=== PATIENT | female | born 1970 | race Caucasian/White ===

== ENCOUNTER 2023-01-03 19:47 | Outpatient (REF) | payer OTHER, SELFPAY ==
[2023-01-06 11:09] LABS: Age Gdln ACOG Testing Note (.); HPV Aptima Negative (Negative); IGP, Aptima HPV, rfx 16/18,45 Note (.)
== END 2023-01-03 19:48 ==
LOC: LAB 19:47
PROVIDERS: PCP Physician Assistant; Visit Provider Physician Assistant
DX: R87.615 Unsatisfactory cytologic smear of cervix (principal)
CPT/HCPCS: 87624; G0145

== ENCOUNTER 2023-11-29 15:48 | Outpatient (OUT) | payer OTHER, SELFPAY | END 2023-11-29 15:49 | disposition home or self-care (01) | LOC: SLEEP 15:48 | PROVIDERS: PCP Family Medicine; Visit Provider Family Medicine | DX: G47.33 Obstructive sleep apnea (adult) (pediatric) (principal) | CPT/HCPCS: 95806 ==

== ENCOUNTER 2024-02-29 16:08 | Outpatient (RCR) | payer OTHER, SELFPAY | END 2024-03-21 11:48 | disposition home or self-care (01) | LOC: PT 16:08 | PROVIDERS: PCP Family Medicine | DX: M53.3 Sacrococcygeal disorders, not elsewhere classified (principal) | CPT/HCPCS: 97110; 97112; 97113; 97162 ==

== ENCOUNTER 2024-03-18 13:45 | Outpatient (OUT) | payer OTHER, SELFPAY ==
--- NOTE | 2024-03-18 15:04 | P.CN_ITS ---
Consult Note: HPI Data of Consult Patient: new to practice Consult date: 03/18/24 Requesting Physician: Doris Green MD Primary Care Provider: Denise Baker MD Consult Narrative Reason for consult: low back, buttock pain Narrative: 53yof who presents for evaluation. several months of worsening low back and buttock pain, occasionally notes shooting pain into bilateral lower extremities. has had two lumbar surgeries in the past, fused from l2-5. imaging reviewed, which shows multilevel degnerative changes. currently engaged in physical therapy and has engaged in >6 weeks of provider directed home exercises, without lasting benefit. uses ibuprofen, with some decreasing benefit. denies adverse med side effects. cc:: CC: Doris Green MD Review of Systems ROS Status of ROS 10 or more systems reviewed and unremark able except as noted in history and below Exam Narrative Exam Narrative: Psych-alert and oriented x 3. Attentive and appropriate, constitutionally normal, displays normal mood and affect per situation.? There are no obvious deficits in memory, reasoning, or intellect.? Skin-no obvious rashes, bruising, erythema noted to the patient's area of pain. Extremities- extremities are warm with minimal edema and palpable pulses. Lumbar-no significant tenderness to palpation noted in the lumbar spine and paraspinal musculature.? Pain is elicited with extension, and lateral rotation of the lumbar spine. Range of motion is slightly diminished with these motions due to pain. Facet loading maneuvers are positive bilaterally and do appear to be concordant with the patient's normal complaints of pain.? Sacroiliac - tenderness to palpation over bilateral PSIS. Positive Ganga's bilaterally. Positive thigh thrust bilaterally. Coordination remains intact.? Gait remains non-antalgic. Assessment and Plan Assessment and Plan (1) Sacroiliac joint pain: (2) Lumbar postlaminectomy syndrome: Plan 53yof who presents for evaluation. failed conservative measures, as noted. imaging reviewed, as noted. given symptoms and imaging findings, prudent to attempt bilateral sacroiliac joint injections under fluoroscopic for diagnostic and potentially therapeutic purposes. she is in agreement. meds reviewed. will trial celebrex 200mg bid prn. follow up after procedure.
== END 2024-03-18 13:46 | disposition home or self-care (01) ==
LOC: PM 13:45
PROVIDERS: PCP Family Medicine; Visit Provider Anesthesiology
DX: M53.3 Sacrococcygeal disorders, not elsewhere classified (principal); M96.1 Postlaminectomy syndrome, not elsewhere classified
CPT/HCPCS: G0463

== ENCOUNTER 2024-04-08 06:39 | Day surgery (SDC) | payer OTHER, SELFPAY ==
--- OUTSIDE RECORDS SUMMARY | 2024-04-08 06:43 | XMS_ITS | CCD ---
Author Organization [facility] Care Team Providers Care Organ Assembler Name Role Phone John Hutton Unavailable Luke Johnson Unavailable Stan Cunningham Unavailable MD Denise Hutton Primary Care Provider [phone] OSMIN YatesC Breann Barfield Attending Provider Denise Hutton Primary Care Unavailable Stan Cunningham Admitting Unavailable Stan Cunningham Attending Unavailable Denise Hutton Primary Care Unavailable Breann Yates Admitting Unavailable Breann Yates Attending Unavailable Denise Hutton Primary Care Unavailable Stan Cunningham Admitting Unavailable Stan Cunningham Attending Unavailable Denise Hutton Unavailable NICOLE ., KIKO Admitting Unavailable FAWWAD, WESLEY H Primary Care Unavailable NICOLE ., KIKO Attending Unavailable NICOLE ., KIKO Consulting Unavailable REQUEST, NONE LISTED Attending Unavaila ble REQUEST, DR JACKSON LISTED Consulting Unavaila ble REQUEST, NONE LISTED Admitting Unavaila ble FAWWAD, WESLEY H Primary Care Unavailable ANNI, DR DENISE Metzger Admitting Unavailable FAWWAD, WESLEY H Primary Care Unavailable HUTTON, DR DENISE Metzger Attending Unavailable FAWWAD, WESLEY H Primary Care Unavailable ANNI, DR DENISE Metzger Attending Unavailable ANNI, DR DENISE Metzger Consulting Unavailable ANNI, DR DENISE Metzger Admitting Unavailable ALO ., DR ESTRADA Attending Unavailable ALO ., DR ESTRADA Consulting Unavailable FAWWAD, WESLEY H Primary Care Unavailable ALO ., DR ESTRADA Admitting Unavailable MD Denise Hutton Primary Care Provider [phone] MD Denise Hutton Attending Provider [phone] Peter THORNTON, Doris Nelson Attending Unavailable KONSTANTIN GAYTAN Attending Unavailable Allergies Allergy Classification Reported Allergen(s) Allergy Type Date of Onset Reaction(s) Facility (12 sources) Sulfamethoxazole / Trimethoprim Drug Allergy Unknown [facility] [employer] Other (5 sources) Sulfamethoxazole; Translations: [sulfamethoxazole] Drug Allergy 08-22-19 [facility] (5 sources) Trimethoprim; Translations: [trimethoprim] Drug Allergy 08-22-19 [facility] (3 sources) Glucophage *ANTIDIABETICS* Allergy to substance 11-02-19 [facility] Medications Current Medications Medication Drug Class(es) Dates Sig (Normalized) Sig (Original) 0.67 ML dupilumab 150 MG/ML Prefilled Syringe [Dupixent] (7 sources) Dupixent 100 MG/0.67ML as directed Subcutaneous Active Accu-Chek Rossi Plus - (2 sources) Start: 01-18-2023 Accu-Chek Rossi Plus - as directed In Vitro daily for 90 days Dec, Active amoxicillin 875 mg / clavulanate 125 mg oral tablet (3 sources) Penicillin-class Antibacterial Start: 12-20-2022 take 1 tablet by mouth every twelve hours Amoxicillin-Pot Clavulanate 875-125 MG 1 tablet Orally every 12 hrs for 10 day(s) November, Active benzonatate 200 mg oral capsule (3 sources) Non-narcotic Antitussive Start: 12-20-2022 take 1 capsule by mouth every eight hours Benzonatate 200 MG 1 capsule Orally Three times a day for 10 day(s) November, Active cetirizine hydrochloride 10 mg oral tablet (11 sources) Histamine-1 Receptor Antagonist Start: 08-22-2019 take 1 tablet by mouth once daily at bedtime Cetirizine (Zyrtec) 10 mg Tablet Active 10 MG PO Daily at bedtime August 22, 2019 1:00am dapagliflozin 5 mg oral tablet (4 sources) Sodium-Glucose Cotransporter 2 Inhibitor Start: 09-19-2022 take 1 tablet by mouth every twenty-four hours Farxiga 5 MG 1 tablet Orally Once a day for 28 days sample 20 Feb, 2023 Active doxycycline hyclate 100 mg oral capsule (7 sources) Tetracycline-class Drug take 1 capsule by mouth twice daily Doxycycline Hyclate 100 MG TAKE 1 CAPSULE BY MOUTH TWICE A DAY for 7 Active empagliflozin 25 mg oral tablet (6 sources) Sodium-Glucose Cotransporter 2 Inhibitor Start: 11-03-2023 take 1 tablet by mouth once daily Empagliflozin (Jardiance) 25 mg tablet Active 25 MG PO Daily November 03, 2023 12:00am take 1 tablet by vargas th every twenty-four hours Jardiance 25 MG 1 tablet Orally Once a day for 90 days Active take 1 tablet by vargas th every twenty-four hours Jardiance 10 MG 1 tablet Orally Once a day Active estradiol 1 mg oral tablet (20 sources) Estrogen Start: 10-18-2023 End: 01-16-2024 Estradiol Active 0 .ROUTE .COMPLEX January 16, 2024 8:35am TAKE 1 TABLET DAILY Start: 08-22-2019 End: 10-18-2023 take 1 mg by mouth once daily Estradiol Discontinued 1 MG PO Daily August 22, 2019 1:00am October 18, 2023 8:31am fluticasone propionate 0.05 mg/actuat metered dose nasal spray (11 sources) Corticosteroid Start: 08-22-2019 Fluticasone Pr opionate Active 2 SPRAY INTRANASAL Daily August 22, 2019 1:00am take 2 spray(s) nasal route once daily Fluticasone Propionate 50 MCG/ACT USE 2 SPRAYS IN EACH NOSTRIL DAILY for 90 Active FreeStyle Flaca 2 [place] - (7 sources) Start: 09-19-2022 FreeStyle Flaca 2 [place] - as directed for 30 days Aug, Active FreeStyle Flaca 2 Sensor - (7 sources) Start: 09-19-2022 FreeStyle Flaca 2 Sensor - as directed for 30 days Aug, Active glipiZIDE 10 mg oral tablet (13 sources) Sulfonylurea Start: 08-22-2019 take 10 mg by mouth twice daily Glipizide Active 10 MG PO Twice daily August 22, 2019 1:00am hydroCHLOROthiazide 12.5 mg / lisinopril 20 mg oral tablet (17 sources) Thiazide Diuretic, Angiotensin Converting Enzyme Inhibitor Start: 02-05-2024 Lisinopril-Hydr ochlorothiazide Active 0 .ROUTE .COMPLEX February 05, 2024 10:23am TAKE 1 TABLET DAILY Start: 08-22-2019 End: 02-05-2024 take 1 tablet by mouth once daily Lisinopril-Hydrochlorothiazide Discontin ued 1 TAB PO Daily August 22, 2019 1:00am February 05, 2024 10:23am ibuprofen 800 mg oral tablet (17 sources) Nonsteroidal Anti-inflammatory Drug Start: 10-04-2023 Ibuprofen (Ibu) 8 00 mg tablet Active 0 .ROUTE .COMPLEX 270 October 04, 2023 3:08pm TAKE 1 TABLET 3 TIMES DAILYAS NEEDED Start: 10-04-2023 End: 10-04-2023 take 800 mg by mouth three times daily Ibuprofen Discontinued 800 MG PO Three times daily October 04, 2023 1:00am October 04, 2023 3:08pm Start: 08-22-2019 End: 09-04-2019 take 800 mg by mouth three times daily Ibuprofen Discontinued 800 MG PO Three times daily August 22, 2019 1:00am September 04, 2019 2:11pm take 1 tablet by vargas th every eight hours at mealtime as needed Ibuprofen 800 MG 1 tablet with food or milk as needed Orally every 8 hrs Active lisinopril 20 mg oral tablet (1 source) Angiotensin Converting Enzyme Inhibitor take 1 tablet by mouth once daily Lisinopril 20 MG TAKE 1 TABLET BY MOUTH EVERY DAY Oral for 90 Active metFORMIN hydrochloride 1000 mg oral tablet (19 sources) Biguanide Start: Metformin Active 0 .ROUTE .COMPLEX 90 November 08, 2023 9:58am TAKE 1 TABLET ONCE DAILY WITH A MEAL Start: 11-03-2023 End: 11-08-2023 take 1 tablet by mouth once daily Metformin Discontinued 1 TAB PO Daily November 03, 2023 12:00am November 08, 2023 9:59am FreeTextSi tablet with a meal Orally Once a day; Note: Source Status: Taking; Refills: 3; Qty: 90 Tablet; Provider: Anni Metzger Start: 11-22-2022 take 1 tablet by vargas th every twenty-four hours metFORMIN HCl 1000 MG 1 tablet with a meal Orally Once a day for 90 days Oct, Active Start: 08-22-2019 End: 02-01-2022 take 500 mg by mouth twice daily Metformin Discontinued 500 MG PO Twice daily August 22, 2019 1:00am February 01, 2022 6:04am take 1 tablet by vargas th every twenty-four hours metFORMIN HCl 500 MG 1 tablet with a meal Orally Once a day Active mometasone furoate 0.05 mg/actuat metered dose nasal spray (3 sources) Corticosteroid take 2 spray(s) nasal route once daily Nasonex 50 MCG/ACT 2 sprays in each nostril Nasally Once a day Active montelukast 10 mg oral tablet (16 sources) Leukotriene Receptor Antagonist Start: 08-22-19 take 10 mg by mouth once daily in the morning Montelukast Active 10 MG PO Every morning August 22, 2019 1:00am Nasonex 50 MCG/ACT (2 sources) take 2 spray(s) nasal route once daily Nasonex 50 MCG/ACT 2 sprays in each nostril Nasally Once a day Active pantoprazole 40 mg delayed release oral tablet (14 sources) Proton Pump Inhibitor Start: 11-08-19 Pantoprazole Active 0 .ROUTE .COMPLEX 90 November 08, 2023 9:58am TAKE 1 TABLET ONCE DAILY Start: 02-01-2022 End: 11-08-2023 take 40 mg by mouth once daily Pantoprazole Discontinu ed 40 MG PO Daily February 01, 2022 12:00am November 08, 2023 9:59am Completed/Discontinued Medications Medication Drug Class(es) Dates Sig (Normalized) Sig (Original) cephalexin 500 mg oral capsule (4 sources) Cephalosporin Antibacterial Start: 09-04-19 End: 02-02-20 take 1 capsule by mouth every eight hours Cephalexin (Keflex) 500 mg capsule Discontinued 500 MG PO Q8H 15 September 04, 2019 1:00am February 01, 2022 6:04am cyclobenzaprine hydrochloride 10 mg oral tablet (4 sources) Muscle Relaxant Start: 09-04-19 End: 02-02-20 take 10 mg by mouth three times daily Cyclobenzaprine Discontinued 10 MG PO Three times daily 50 September 04, 2019 1:00am February 01, 2022 6:04am dicyclomine hydrochloride 20 mg oral tablet (5 sources) Anticholinergic Start: 08-22-19 End: 02-02-20 take 20 mg by mouth twice daily Dicyclomine Discontinued 20 MG PO Twice daily August 22, 2019 1:00am February 01, 2022 6:04am methylPREDNISolone 4 mg oral tablet (4 sources) Corticosteroid methylPREDNISolo ne 4 MG TAKE 6 TABLETS ON DAY 1 DIRECTED ON PACKAGE AND DECREASE BY 1 TAB EACH DAY FOR A TOTAL OF 6 DAYS for 6 Not-Taking oxyCODONE hydrochloride 5 mg oral capsule (4 sources) Opioid Agonist Start: 09-04-19 End: 02-02-20 take 5-10 mg by mouth every six hours Oxycodone Discontinued 5 - 10 MG PO Q6H 60 8 September 04, 2019 February 01, 2022 6:04am Prednisone (4 sources) Start: 09-04-19 End: 02-02-20 Prednisone Discontinued 1 dose pk PO per package directions September 04, 2019 1:00am February 01, 2022 6:04am take 4 tabs for 3 days then take 3 tabs for 3 days then take 2 tabs for 3 days then take 1 tab for 3 days Start: 09-04-2019 End: 02-01-2022 Prednisone Discontinued 1 do se pk PO per package directions September 04, 2019 12:00am February 01, 2022 5:04am take 4 tabs for 3 days then take 3 tabs for 3 days then take 2 tabs for 3 days then take 1 tab for 3 days sucralfate 1000 mg oral tablet (9 sources) Aluminum Complex Start: 02-01-2022 End: 11-03-2023 take 1 g by mouth three times daily Sucralfate Discontinued 1 GM PO Three times daily February 01, 2022 12:00am November 03, 2023 2:42pm Start: 01-24-2022 take 1 tablet by vargas th every eight hours Sucralfate 1 GM 1 tablet on an empty stomach Orally THREE TIMES A DAY for 30 day(s) Dec, Not-Taking Start: 01-24-2022 take 1 tablet by vargas th three times daily Sucralfate 1 GM 1 tablet on an empty stomach Orally THREE TIMES A DAY for 30 day(s) Dec, Not-Taking tiZANidine (8 sources) Central alpha-2 Adrenergic Agonist tiZANidine HCl Not-Taking tiZANidine HCl A ctive Problems Active Problems Problem Classification Problem Date Documented Da te Episodic/Chronic Allergic reactions (7 sources) Atopic dermatitis; Translations: [Intrinsic (allergic) eczema] Chronic Allergic reactions (3 sources) Dermatitis, unspecified; Translations: [Dermatitis, unspecified] Onset: 09-06-2022 Episodic Diabetes mellitus with complications (20 sources) Type 2 diabetes mellitus; Translations: [Type 2 diabetes mellitus with unspecified complications] Onset: 01-24-2022 Resolved: 01-24-2022 Chronic Diabetes mellitus without complication (1 source) Type 2 diabetes mellitus without complications; Translations: [Diabetes mellitus without mention of complication, type II or unspecified type, not stated as uncontrolled] 11-03-2023 Chronic Esophageal disorders (20 sources) Gastro-esophageal reflux disease with esophagitis; Translations: [Gastro-esophageal reflux disease with esophagitis] Onset: 01-24-2022 Resolved: 01-24-2022 Chronic Hepatitis (12 sources) Nonalcoholic steatohepatitis; Translations: [Nonalcoholic steatohepatitis (STEWART)] Chronic Immunizations and screening for infectious disease (17 sources) Raised antinuclear antibody; Translations: [Other specified abnormal immunological findings in serum] Onset: 09-19-2022 Episodic Noninfectious gastroenteritis (8 sources) Gastroenteritis; Translations: [Noninfective gastroenteritis and colitis, unspecified] Episodic Other acquired deformities (12 sources) Spondylolisthesis; Translations: [Spondylolisthesis, lumbar region] Episodic Other female genital disorders (1 source) Other specified noninflammatory disorders of vagina; Translations: [OTH SPEC NONINFLAMMATORY D/O VAGINA] Onset: 09-22-2022 Episodic Other gastrointestinal disorders (8 sources) Irritable bowel syndrome with diarrhea; Translations: [Irritable bowel syndrome with diarrhea] Chronic Other gastrointestinal disorders (1 source) Irritable bowel syndrome with diarrhea Onset: 01-24-2022 Resolved: 01-24-2022 Chronic Other gastrointestinal disorders (12 sources) Diarrhea; Translations: [Diarrhea, unspecified] Episodic Other gastrointestinal disorders (20 sources) Dysphagia; Translations: [Dysphagia, unspecified] 02-01-2022 Episodic Other liver diseases (12 sources) Elevated liver enzymes level; Translations: [Abnormal levels of other serum enzymes] Episodic Other nervous system disorders (11 sources) Chronic pain; Translations: [Other chronic pain] Chronic Other nervous system disorders (1 source) Other chronic pain; Translations: [Other chronic pain G89.29] Onset: 05-27-2021 Resolved: 05-27-2021 Chronic Other non-traumatic joint disorders (11 sources) Hip pain; Translations: [Pain in unspecified hip] Episodic Other nutritional; endocrine; and metabolic disorders (20 sources) Body mass index 40+ - severely obese; Translations: [Body mass index (BMI) 40.0-44.9, adult] Chronic Other screening for suspected conditions (not mental disorders or infectious disease) (4 sources) Encounter for screening for malignant neoplasm of cervix; Translations: [ENC SCREENING MALIG NEOPLASM CERV] Onset: 11-28-2022 Episodic Other upper respiratory infections (1 source) Acute maxillary sinusitis, unspecified Episodic Residual codes; unclassified (3 sources) Obstructive sleep apnea syndrome; Translations: [Obstructive sleep apnea (adult) (pediatric)] 11-03-2023 Chronic Residual codes; unclassified (3 sources) Sleep apnea; Translations: [Sleep apnea, unspecified] 11-03-2023 Chronic Residual codes; unclassified (1 source) Obstructive sleep apnea (adult) (pediatric); Translations: [Obstructive sleep apnea (adult)(pediatric)] 11-03-2023 Chronic Residual codes; unclassified (1 source) Sleep apnea, unspecified; Translations: [Obstructive sleep apnea (adult)(pediatric)] 11-03-2023 Chronic Spondylosis; intervertebral disc disorders; other back problems (13 sources) Inflammation of sacroiliac joint; Translations: [Sacroiliitis, not elsewhere classified] Onset: 05-13-2021 Resolved: 05-13-2021 Chronic Spondylosis; intervertebral disc disorders; other back problems (20 sources) Spinal stenosis of lumbar region; Translations: [Spinal stenosis, lumbar region with neurogenic claudication] Onset: 05-13-2021 Resolved: 05-13-2021 Episodic Unclassified (1 source) R13.10 - Dysphagia, unspecified; Translations: [R13.10 - Dysphagia, unspecified] Onset: 02-01-2022 Unclassified (1 source) Z01.812 - Encounter for preprocedural laboratory examination; Translations: [Z01.812 - Encounter for preprocedural laboratory examination] Onset: 01-27-2022 Past or Other Problems Problem Classification Problem Date Documented Da te Episodic/Chronic Malaise and fatigue (4 sources) Other fatigue; Translations: [OTHER FATIGUE] Onset: 03-22-2022 Episodic Other connective tissue disease (1 source) Trochanteric bursitis, left hip; Translations: [Trochanteric bursitis of left hip M70.62] Onset: 05-13-2021 Resolved: 05-13-2021 Episodic Other gastrointestinal disorders (1 source) Dysphagia, unspecified Onset: 01-24-2022 Resolved: 01-24-2022 Episodic Other gastrointestinal disorders (1 source) Other specified symptoms and signs involving the digestive system and abdomen Onset: 01-24-2022 Resolved: 01-24-2022 Episodic Other non-traumatic joint disorders (1 source) Pain in unspecified hip; Translations: [Hip pain M25.559] Onset: 05-27-2021 Resolved: 05-27-2021 Episodic Unclassified (1 source) Low back pain, unspecified M54.50; Translations: [Low back pain, unspecified M54.50] Onset: 05-27-2021 Resolved: 05-27-2021 Results Test Name Value Interpretation Reference Range Facility PAP ACOG PANEL 2: 30 to 65on 12-05-2022 . . Normal [facility] Comment on above: Result Comment: Perf ormed at: WB Performed By: #### [id number] #### [facility] [address] [address] [address] Axel Zamora Age Gdln ACOG Testing 30-65 Normal [facility] Comment on above: Performed By: #### [id number] #### [facility] [address] [address] [address] Axel Zamora DIAGNOSIS: Comment Normal [facility] Comment on above: Result Comment: UNSA TISFACTORY FOR EVALUATION. Performed at: WB Performed By: #### [id number] #### [facility] [address] [address] [address] Axel Zamora HPV Aptima Negative Normal Negative [facility] Comment on above: Result Comment: This nucleic acid amplification test detects fourteen high-risk HPV types (16,18,31,33,35,39,45,51,52,56,58,59,66,68) without differentiation. Performed at: =G Performed By: #### [id number] #### [facility] [address] [address] [address] Axel Zamora HPV Genotype Reflex Comment Normal [facility] Comment on above: Result Comment: Crit eria not met, HPV Genotype not performed. Performed at: WB Performed By: #### [id number] #### [facility] [address] [address] [address] Axel Zamora Methodology: Comment Normal [facility] Comment on above: Result Comment: This liquid based ThinPrep(R) pap test was screened with the use of an image guided system. Performed at: WB Performed By: #### [id number] #### [facility] [address] [address] [address] Axel Zamora Note: Comment Normal [facility] Comment on above: Result Comment: The Pap smear is a screening test designed to aid in the detection of premalignant and malignant conditions of the uterine cervix. It is not a diagnostic procedure and should not be used as the sole means of detecting cervical cancer. Both false-positive and false-negative reports do occur. . Performed at: WB Performed By: #### [id number] #### [facility] [address] [address] [address] Axel Zamora Performed by: Comment Normal [facility] Comment on above: Result Comment: Margaret Bryant, Retail Brand Ambassador (ASCP) Performed at: WB Performed By: #### [id number] #### [facility] [address] [place] [address] Dr. Axel Zamora QC reviewed by: Comment Normal [facility] Comment on above: Result Comment: Teri Barahona, Supervisory Retail Brand Ambassador (ASCP) Performed at: WB Performed By: #### [id number] #### [facility] [address] [address] [address] Axel Zamora Recommendation: Comment Normal [facility] Comment on above: Result Comment: Sugg est follow up as clinically appropriate. Performed at: WB Performed By: #### [id number] #### [facility] [address] [address] [address] Axel Zamora Specimen adequacy: Comment Normal [facility] Comment on above: Result Comment: Spec imen processed and examined but unsatisfactory for evaluation of epithelial abnormality because of insufficient cellularity. Performed at: WB Performed By: #### [id number] #### [facility] [address] [place] [address] Dr. Axel Zamora GLYCOHEMOGLOBIN A1Con 2022 ADA RECOMMENDATION SEE BELOW Normal [facility] Comment on above: Result Comment: ADA RECOMMENDED LIMIT 4.0 - 6.0 ADA THERAPEUTIC TARGET < 7.0 ACTION SUGGESTED > 7.0 Performed By: #### D ATA1C #### [facility] [address] [address] [address] Axel Zamora Glucose [Mass/Vol] 126 mg/dL Normal [facility] Comment on above: Performed By: #### D ATA1C #### [facility] [address] [place] [address] Dr. Axel Zamora HbA1c (Bld) [Mass fraction] 6.0 % Normal 4.5-6.2 [facility] Comment on above: Performed By: #### D ATA1C #### [facility] [address] [place] [address] Dr. Axel Zamora CHLAMYDIA/GONOCOCCUS BHARATH (SW AB/URINE/PAPon 09-22-2022 Chlamydia trachomatis, BHARATH Negative Normal Negative [facility] Comment on above: Performed By: #### C T/NGNA #### [facility] [address] [place] [address] Dr. Axel Zamora Neisseria gonorrhoeae, BHARATH Negative Normal Negative [facility] Comment on above: Performed By: #### C T/NGNA #### [facility] [address] [place] [address] Dr. Axel Zamora VAGINITIS/VAGINOSIS DNA PROB Gt 09-21-2022 Corinne species Negative Normal Negative [facility] Comment on above: Performed By: #### V AGINT #### [facility] [address] [place] [address] Dr. Axel Zamora Gardnerella vaginalis Negative Normal Negative [facility] Comment on above: Performed By: #### V AGINT #### [facility] [address] [place] [address] Dr. Axel Zamora Trichomonas vaginalis Negative Normal Negative [facility] Comment on above: Performed By: #### V AGINT #### [facility] [address] [place] [address] Dr. Axel Zamora Superficial Wound Cultureon 09-06-2022 Superficial Wound Culture RIGHT LATERAL DISTAL UPPER ARM No Growth 2 Days PERFORMED BY: [facility] [address] [place] [address] PATHOLOGIST [facility] [employer] TE[employer] LATISHA FRANCO M.D. Normal [facility] Comment on above: Performed By: #### C USUP #### [facility] [address] CBC AUTO DIFFon 03-22-2022 BASO # 0.1 103/ul Normal 0.0-0.1 [facility] Comment on above: Performed By: #### C BC #### [facility] [address] [place] [address] Dr. Axel Zamora Basophils/100 WBC (Bld) 0.7 % Normal 0.2-2.0 [facility] Comment on above: Performed By: #### C BC #### [facility] [address] [place] [address] Dr. Axel Zamora EO # 0.3 103/ul Normal 0.0-0.7 [facility] Comment on above: Performed By: #### C BC #### [facility] [address] [place] [address] Dr. Axel Zamora Eosinophils/100 WBC (Bld) 3.7 % Normal 0.9-7.0 [facility] Comment on above: Performed By: #### C BC #### [facility] [address] [place] [address] Dr. Axel Zamora Erythrocyte distribution width (RBC) [Ratio] 12.6 % Normal 11.0-15.0 [facility] Comment on above: Performed By: #### C BC #### [facility] [address] [place] [address] Dr. Axel Zamora Hematocrit (Bld) [Volume fraction] 40.0 % Normal 36.0-48.0 [facility] Comment on above: Performed By: #### C BC #### [facility] [address] [place] [address] Dr. Axel Zamora Hemoglobin (Bld) [Mass/Vol] 13.4 g/dL Normal 12.0-16.0 [facility] Comment on above: Performed By: #### C BC #### [facility] [address] [place] [address] Dr. Axel Zamora IG # 0.04 10e3/ul Critically high 0.00-0.03 [facility] Comment on above: Performed By: #### C BC #### [facility] [address] [place] [address] Dr. Axel Zamora IG % 0.6 % Critically high 0.0-0.5 [facility] Comment on above: Performed By: #### C BC #### [facility] [address] [place] [address] Dr. Axel Zamora LYMPH # 2.2 103/ul Normal 1.2-3.8 [facility] Comment on above: Performed By: #### C BC #### [facility] [address] [place] [address] Dr. Axel Zamora Lymphocytes/100 WBC (Bld) 32.1 % Normal 20.5-60.0 [facility] Comment on above: Performed By: #### C BC #### [facility] [address] [place] [address] Dr. Axel Zamora MANUAL DIFF REQ NO Normal [facility] Comment on above: Performed By: #### C BC #### [facility] [address] [place] [address] Dr. Axel Zamora MCH (RBC) [Entitic mass] 31.9 pg Normal 26.7-34.0 [facility] Comment on above: Performed By: #### C BC #### [facility] [address] [place] [address] Dr. Axel Zamora MCHC (RBC) [Mass/Vol] 33.5 g/dL Normal 29.9-35.2 [facility] Comment on above: Performed By: #### C BC #### [facility] [address] [address] [address] Axel Zamora MCV (RBC) [Entitic vol] 95.2 fL Normal 81.0-99.0 [facility] Comment on above: Performed By: #### C BC #### [facility] [address] [address] [address] Axel Zamora MONO # 0.6 103/ul Normal 0.3-0.8 [facility] Comment on above: Performed By: #### C BC #### [facility] [address] [address] [address] Axel Zamora Monocytes/100 WBC (Bld) 8.6 % Normal 1.7-12.0 [facility] Comment on above: Performed By: #### C BC #### [facility] [address] [place] [address] Dr. Axel Zamora NEUT # 3.8 103/ul Normal 1.4-6.5 [facility] Comment on above: Performed By: #### C BC #### [facility] [address] [place] [address] Dr. Axel Zamora Neutrophils/100 WBC (Bld) 54.3 % Normal 43.0-75.0 [facility] Comment on above: Performed By: #### C BC #### [facility] [address] [address] [address] Axel Zamora Platelet mean volume (Bld) [Entitic vol] 9.3 fL Critically low 9.5-13.5 [facility] Comment on above: Performed By: #### C BC #### [facility] [address] [address] [address] Axel Zamora PLT 246 103/ul Normal 150-450 [facility] Comment on above: Performed By: #### C BC #### [facility] [address] [address] [address] Axel Zamora RBC 4.20 106/ul Normal 4.20-5.40 [facility] Comment on above: Performed By: #### C BC #### [facility] [address] [place] [address] Dr. Axel Zamora WBC 7.0 103/ul Normal 4.0-11.0 [facility] Comment on above: Performed By: #### C BC #### [facility] [address] [place] [address] Dr. Axel Zamora CULTURE URINEon 03-22-2022 CULTURE URINE Culture Observations : LIGHT GROWTH OF MIXED GENITAL KUNAL. NO POTENTIAL PATHOGENS SEEN. Normal [facility] Comment on above: Performed By: #### U RCX #### [facility] [address] [place] [address] Dr. Axel Zamora FREE T4on 03-22-2022 Free T4 [Mass/Vol] 0.82 ng/dL Normal 0.76-1.46 [facility] Comment on above: Performed By: #### F T4 #### [facility] [address] [place] [address] Dr. Axel Zamora GLYCOHEMOGLOBIN A1Con 2021 ADA RECOMMENDATION SEE BELOW Normal [facility] Comment on above: Result Comment: ADA RECOMMENDED LIMIT 4.0 - 6.0 ADA THERAPEUTIC TARGET < 7.0 ACTION SUGGESTED > 7.0 Performed By: #### A 1C #### [facility] [address] [place] [address] Dr. Axel Zamora Glucose [Mass/Vol] 128 mg/dL Normal [facility] Comment on above: Performed By: #### A 1C #### [facility] [address] [place] [address] Dr. Axel Zamora HbA1c (Bld) [Mass fraction] 6.1 % Normal 4.5-6.2 [facility] Comment on above: Performed By: #### A 1C #### [facility] [address] [place] [address] Dr. Axel Zamora PROF CHEM 8 (BAS METB)on Anion gap [Moles/Vol] 14.0 mmol/L Normal [facility] Comment on above: Performed By: #### T SH, BMP #### [facility] [address] [address] [address] Axel Zamora Calcium [Mass/Vol] 9.0 mg/dL Normal 8.5-10.1 [facility] Comment on above: Performed By: #### T SH, BMP #### [facility] [address] [address] [address] Axel Zamora Chloride [Moles/Vol] 103 mmol/L Normal 98-107 [facility] Comment on above: Performed By: #### T SH, BMP #### [facility] [address] [place] [address] Dr. Axel Zamora CO2 [Moles/Vol] 24.8 mmol/L Normal 21.0-32.0 [facility] Comment on above: Performed By: #### T SH, BMP #### [facility] [address] [place] [address] Dr. Axel Zamora Creatinine [Mass/Vol] 0.74 mg/dL Normal 0.55-1.02 [facility] Comment on above: Performed By: #### T SH, BMP #### [facility] [address] [place] [address] Dr. Axel Zamora EGFR-AF LUXEMBOURGER >60 Normal >=60 [facility] Comment on above: Performed By: #### T SH, BMP #### [facility] [address] [place] [address] Dr. Axel Zamora EGFR-NON AF LUXEMBOURGER >60 Normal >=60 [facility] Comment on above: Performed By: #### T SH, BMP #### [facility] [address] [place] [address] Dr. Axel Zamora Glucose [Mass/Vol] 125 mg/dL Critically high 74-106 [facility] Comment on above: Performed By: #### T SH, BMP #### [facility] [address] [place] [address] Dr. Axel Zamora Potassium [Moles/Vol] 3.8 mmol/L Normal 3.5-5.1 [facility] Comment on above: Performed By: #### T SH, BMP #### [facility] [address] [place] [address] Dr. Axel Zamora Sodium [Moles/Vol] 138 mmol/L Normal 136-145 [facility] Comment on above: Performed By: #### T SH, BMP #### [facility] [address] [place] [address] Dr. Axel Zamora Urea nitrogen [Mass/Vol] 14.0 mg/dL Normal 7.0-18.0 [facility] Comment on above: Performed By: #### T SH, BMP #### [facility] [address] [place] [address] Dr. Axel Zamora Urea nitrogen/Creatinine [Mass ratio] 18.9 mg/mg Normal [facility] Comment on above: Performed By: #### T EDSON, BMP #### [facility] [address] [place] [address] Dr. Axel Zamora TSHon 03-22-2022 TSH 3.074 uIU/mL Normal 0.358-3.740 [facility] Comment on above: Performed By: #### T EDSON, BMP #### [facility] [address] [place] [address] Dr. Axel Zamora UA RANDOM W/MICROSCOPICon BACTERIA TRACE Abnormal NONE SEEN [facility] Comment on above: Performed By: #### T SH, BMP #### [facility] [address] [place] [address] Dr. Axel Zamora Bilirubin Ql (U) Negative Normal NEGATIVE [facility] Comment on above: Performed By: #### T EDSON, BMP #### [facility] [address] [place] [address] Dr. Axel Zamora CAST NONE SEEN Normal NONE SEEN [facility] Comment on above: Performed By: #### T EDSON, BMP #### [facility] [address] [place] [address] Dr. Axel Zamora Clarity (U) CLEAR Normal CLEAR [facility] Comment on above: Performed By: #### T EDSON, BMP #### [facility] [address] [place] [address] Dr. Axel Zamora Color (U) LT. YELLOW Normal YELLOW [facility] Comment on above: Performed By: #### T SH, BMP #### [facility] [address] [address] [address] Axel Zamora Crystals LM Nom (Urine sed) NONE SEEN Normal NONE SEEN [facility] Comment on above: Performed By: #### T SH, BMP #### [facility] [address] [place] [address] Dr. Axel Zamoar Epithelial cells LM Ql (Urine sed) RARE Normal NONE SEEN /RARE [facility] Comment on above: Performed By: #### T SH, BMP #### [facility] [address] [place] [address] Dr. Axel Zamora Glucose Ql (U) Negative Normal NEGATIVE [facility] Comment on above: Performed By: #### T SH, BMP #### [facility] [address] [place] [address] Dr. Axel Zamora Hemoglobin Ql (U) Negative Normal NEGATIVE [facility] Comment on above: Performed By: #### T SH, BMP #### [facility] [address] [place] [address] Dr. Axel Zamora Ketones Ql (U) Negative Normal NEGATIVE [facility] Comment on above: Performed By: #### T SH, BMP #### [facility] [address] [place] [address] Dr. Axel Zamora LEUKOCYTES Negative Normal NEGATIVE [facility] Comment on above: Performed By: #### T SH, BMP #### [facility] [address] [place] [address] Dr. Axel Zamora MUCOUS TRACE Abnormal NONE SEEN [facility] Comment on above: Performed By: #### T SH, BMP #### [facility] [address] [address] [address] Axel Zamora Nitrite Ql (U) Negative Normal NEGATIVE [facility] Comment on above: Performed By: #### T SH, BMP #### [facility] [address] [place] [address] Dr. Axel Zamora pH (U) 6.0 [pH] Normal 5-9 [facility] Comment on above: Performed By: #### T SH, BMP #### [facility] [address] [address] [address] Axel Zamora RBC 0-2 Normal 0-2 [facility] Comment on above: Performed By: #### T SH, BMP #### [facility] [address] [address] [address] Axel Zamora SPEC GRAVITY 1.020 Normal 1.005-<=1.025 [facility] Comment on above: Performed By: #### T SH, BMP #### [facility] [address] [address] [address] Axel Zamora UA PROTEIN Negative Normal NEGATIVE/ TRACE [facility] Comment on above: Performed By: #### T SH, BMP #### [facility] [address] [place] [address] Dr. Axel Zamora Urobilinogen Qn (U) 0.2 {Kuldip'U}/dL Normal 0.2 - 1. 0 [facility] Comment on above: Performed By: #### T SH, BMP #### [facility] [address] [place] [address] Dr. Axel Zamora WBC NONE SEEN Normal NONE SEEN [facility] Comment on above: Performed By: #### T SH, BMP #### [facility] [address] [place] [address] Dr. Axel Zamora Glucose Poct Glucometerson 0 02-01-2022 Commemt1 Glu2: Cleaned Meter Normal [facility] Comment on above: Result Comment: PERF ORMED BY: [facility] [address] [place] [address] PATHOLOGIST [facility] [employer]IST[employer] TEACHER LATISHA FRANCO M.D. Performed By: #### G LULS #### Point of Care testing , Glucose [Mass/Vol] 103 mg/dL Normal [facility] Comment on above: Result Comment: [facility] Glucose Reference Range is dependent on time and content of last meal. Glucose of more than 200 mg/dL in a nonstressed, ambulatory subject supports the diagnosis of Diabetes Mellitus. Performed By: #### G LULS #### Point of Care testing , COVID-19 / Flu A/B / RSV PCR on 01-27-2022 SARS-CoV-2 (COVID-19) RNA BHARATH+probe Ql (Unsp spec) SPECIMEN LEFT AT ROOM TEMPERATURE >4 HOURS CALL BACK WAS INITIATED DUE TO SPECIMEN TOO OLD FOR BD One[employer] PCR TESTING. MOLECULARBIOLOGIST CHANGED TEST PLATFORM TO [employer]a Resources[employer] 01/28/22 0700 [facility] Worker?: N COVID-19 Cepheid Result Negative for SARS-CoV-2 RNA by RT-PCR Flu A Cepheid Result Negative for Flu A RNA by RT-PCR Flu B Cepheid Result Negative for Flu B RNA by RT-PCR RSV Cepheid Result Negative for RSV RNA by RT-PCR COVID19 Blank Space -------- Reference: Negative COVID19 Blank Space -------- Cepheid Disclaimer The Cepheid Xpert Xpress CoV-2/Flu/RSV Plus has Cepheid Disclaimer not been FDA cleared or approved; this test has Cepheid Disclaimer been authorized by FDA under an EUA for use by Cepheid Disclaimer authorized laboratories; this test has been Cepheid Disclaimer authorized only for the simultaneous qualitative Cepheid Disclaimer detection and differentiation of nucleic acids from Cepheid Disclaimer SARS-CoV-2, influenza A, influenza B, and Cepheid Disclaimer respiratory syncytial virus (RSV), and not for any Cepheid Disclaimer other viruses or pathogens; and this test is only Cepheid Disclaimer authorized for the duration of the declaration that Cepheid Disclaimer circumstances exist justifying the authorization of Cepheid Disclaimer emergency use of in vitro diagnostic tests for Cepheid Disclaimer detection and/or diagnosis of COVID-19 under Cepheid Disclaimer Section 564(b)(1) of the Act, 21 U.S.C. 360bbb- Cepheid Disclaimer 3(b)(1), unless the authorization is terminated or Cepheid Disclaimer revoked sooner. PERFORMED BY: [place] [address] PATHOLOGIST H[facility] [employer] TEACHER LATISHA FRANCO M.D. Normal [facility] Comment on above: Performed By: #### C OVID19 FLU RSV, CEPHEID NEG #### [address] [place] [id number] [facility] Cepheid COVID PCR Negativeon 01-27-2022 SARS-CoV-2 (COVID-19) RNA BHARATH+probe Ql (Unsp spec) Negative Normal Negative [facility] Comment on above: Result Comment: This is a duplicate Cepheid Xpert Xpress CoV-2/Flu/RSV Plus RNA by RT-PCR result to be used for statistical tracking purpose only. PERFORMED BY: [place] [address] PATHOLOGIST H[facility] [employer] ASSIST[employer] TEACHER LATISHA FRANCO M.D. Performed By: #### C OVID19 FLU RSV, CEPHEID NEG #### [address] [address] [facility] Vital Signs Date Time Vital Sign Value Performing Clinician Facility 02-27-2024 09:05040 Body weight 106.14 kg MD Denise Hutton Work Phone: [facility] 11-03-2023 14:33040 Body height 156.21 cm [facility] 11-03-2023 14:33040 Body mass index (BMI) [Ratio] 43.3 kg/m2 [facility] 11-03-2023 14:040 Body weight 105.8 kg [facility] 11-03-2023 14:33040 Diastolic blood pressure 86 mm[Hg] [facility] 11-03-2023 14:33040 Heart rate 112 /min [facility] 11-03-2023 14:33040 Systolic blood pressure 126 mm[Hg] [facility] 12-20-2022 14: Body height 156.21 cm Denise Hutton Other [facility] Other 12-20-2022 14:30-0400 Body mass index (BMI) [Ratio] 43.49 kg/m2 Denise Hutton Other [facility] Other 12-20-2022 14:30-0400 Body temperature 98 [degF] Denise Hutton Other [facility] Other 12-20-2022 14:30-0400 Body weight 106.14 kg Denise Hutton Other [facility] Other 12-20-2022 14:30-0400 Diastolic blood pressure 80 mm[Hg] Denise Hutton Other [facility] Other 12-20-2022 14:30-0400 Systolic blood pressure 130 mm[Hg] Denise Hutton Other [facility] Other 09-19-2022 13:45-0500 Body height 156.21 cm Denise Hutton Other [facility] Other 09-19-2022 13:45-0500 Body mass index (BMI) [Ratio] 42.75 kg/m2 Denise Hutton Other [facility] Other 09-19-2022 13:45-0500 Body weight 104.33 kg Denise Hutton Other [facility] Other 09-19-2022 13:45-0500 Diastolic blood pressure 72 mm[Hg] Denise Hutton Other [facility] Other 09-19-2022 13:45-0500 SaO2% (BldA) [Mass fraction] 97 % Denise Hutton Other [facility] Other 09-19-2022 13:45-0500 Systolic blood pressure 126 mm[Hg] Denise Hutton Other [facility] Other 08-15-2022 11:45-0500 Body height 156.21 cm Denise Hutton Other [facility] Other 08-15-2022 11:45-0500 Body mass index (BMI) [Ratio] 43.68 kg/m2 Denise Hutton Other [facility] Other 08-15-2022 11:45-0500 Body weight 106.6 kg Denise Hutton Other [facility] Other 08-15-2022 11:45-0500 Diastolic blood pressure 80 mm[Hg] Denise Hutton Other [facility] Other 08-15-2022 11:45-0500 SaO2% (BldA) [Mass fraction] 99 % Denise Hutton Other [facility] Other 08-15-2022 11:45-0500 Systolic blood pressure 128 mm[Hg] Denise Hutton Other [facility] Other 01-24-2022 10:45-0400 Body height 157.48 cm Stan Cunningham Other [facility] Other 01-24-2022 10:45-0400 Body mass index (BMI) [Ratio] 42.98 kg/m2 Stan Cunningham Other [facility] Other 01-24-2022 10:45-0400 Body weight 106.6 kg Stan Cunningham Other [facility] Other 05-13-2021 14:40-0400 Body height 157.48 cm Johnrigo Hutton Other [facility] Other 05-13-2021 14:40-0400 Body mass index (BMI) [Ratio] 45.9 kg/m2 John Hutton Other [facility] Other 05-13-2021 14:40-0400 Body weight 113.85 kg John Hutton Other [facility] Other Encounters Encounter Date Encounter Type Care Provider Facility Start: 04-03-2024 End: 04-03-2024 ambulatory KONSTANTIN GAYTAN Not Available Start: 03-18-2024 End: 03-18-2024 ambulatory Doris Green MD Facility:[facility] Start: 02-27-2024 End: 02-27-2024 ambulatory MD Denise Hutton Work Phone: [facility] Work Phone: Start: 02-27-2024 End: 02-27-2024 Patient encounter procedure MD Denise Hutton Work Phone: [facility] Work Phone: Start: 02-22-2024 End: 02-22-2024 ambulatory MD Denise Hutton Work Phone: [facility] Work Phone: Start: 02-22-2024 End: 02-22-2024 Patient encounter procedure MD Denise Hutton Work Phone: [facility] Work Phone: Start: 11-03-2023 Patient encounter status [facility] Start: 11-03-2023 End: 11-03-2023 ambulatory [facility] Work Phone: Start: 11-03-2023 End: 11-03-2023 Encounter for general adult medical examination without abnormal findings [facility] Start: 11-03-2023 End: 11-03-2023 Patient encounter procedure [facility] Work Phone: Start: 10-04-2023 Non-patient / Non-visit [facility] [employer] Work Phone: Start: 01-20-2023 End: 01-20-2023 ambulatory Denise Hutton Other [facility] Other Start: 01-20-2023 Telephone encounter Denise Hutton [facility] Start: 01-18-2023 End: 01-18-2023 ambulatory Denise Hutton Other [facility] Other Start: 01-18-2023 Telephone encounter Denise Hutton [facility] Start: 12-20-2022 End: 12-20-2022 ambulatory Denise Hutton Other [facility] Other Start: 12-20-2022 Office outpatient visit 15 minutes Denise Hutton [facility] Start: 11-28-2022 End: 11-28-[address] NATALIE PRAJAPATI . Facility: Start: 09-26-2022 End: 09-27-2022 ambulatory NONE LISTED REQUEST Facility: Start: 09-19-2022 End: 09-19-2022 ambulatory KIKO RIVERA . [facility] [employer] Other Start: 09-19-2022 Office outpatient visit 15 minutes Denise Hutton [facility] Start: 09-06-2022 End: 09-06-2022 ambulatory Denise Hutton Facility:[facility] Start: 09-06-2022 End: 09-06-2022 ambulatory MD Denise Hutton Work Phone: [facility] Work Phone: Start: 09-06-2022 End: 09-06-2022 Departed Referred MD Denise Hutton Work Phone: [facility] Work Phone: Start: 08-17-2022 End: 08-17-2022 ambulatory Denise Hutton Other [facility] Other Start: 08-17-2022 Telephone encounter Denise Hutton [facility] Start: 08-15-2022 End: 08-15-2022 ambulatory Denise Hutton Other [facility] Other Start: 08-15-2022 Office outpatient visit 15 minutes Denise Hutton [facility] Start: 08-11-2022 End: 08-11-2022 ambulatory Denise Hutton Other [facility] Other Start: 08-11-2022 Telephone encounter Denise Hutton [facility] Start: 05-10-[address] DENISE HUTTON Facil ity:H1 Start: 03-22-2022 End: 03-23-2022 ambulatory SHAIKH Chad SALTER Facility: Start: 02-01-2022 End: 02-01-2022 ambulatory Denise Hutton Facility:[facility] Start: 01-27-2022 End: 01-27-2022 ambulatory Denise Hutton Facility:[facility] Start: 01-24-2022 End: 01-24-2022 ambulatory Stan Cunningham Other [facility] Other Start: 01-24-2022 Office outpatient ne w 45 minutes Stan Cunningham [facility] Start: 08-19-2021 End: 08-19-2021 ambulatory John Hutton Other [facility] Other Start: 08-19-2021 Telephone encounter John Hutton [facility] [employer] Start: 06-01-2021 End: 06-01-2021 ambulatory Luke Johnson Other [facility] Other Start: 06-01-2021 Telephone encounter Luke Johnson [facility] [employer] Start: 05-27-2021 Office consultation new/estab patient 60 min Luke Johnson [facility] Start: 05-13-2021 Office outpatient visit 25 minutes John KEITH [facility] Neurosurgery Procedures Date Procedure Procedure Detail Performing Clinician Start: 02-22-2024 X-ray of lumbar spin e, six views including bending views MD Denise Hutton Work Phone: Plan of Treatment Date Care Activity Detail Author Start: 02-27-2024 Patient referral [facility] Work Phone: Start: 09-06-2022 Superficial Wound Culture Superficial Wound Culture [facility] Bacteria identified in Unspecified specimen by Aerobe culture [facility] Comprehensive metabo lic 2000 panel - Serum or Plasma [facility] Microalbumin [Mass/volume] in Urine [facility] Patient referral [facility] Work Phone: [facility] Immunizations Immunization Date Immunization Notes Care Provider Fa cility 11-30-2020 COVID-19 mRNA Comirnaty (Pfizer) MD Denise Hutton Work Phone: [facility] 11-09-2020 COVID-19 mRNA, Comirnaty (Pfizer) MD Denise Hutton Work Phone: [facility] Payers Date Payer Category Payer Private Health Insurance 2022 Self-pay [id number] 1970 Unknown [id number] 1970 Unknown [id number] 1970 Unknown [id number] 1970 Unknown [id number] 1970 Unknown [id number] 1959 Private Health Insurance [id number] 1959 Private Health Insurance [id number] 1959 Self-pay [id number] Unknown Hamida BC/BS [id number] Unknown [id number] Unknown [id number] Unknown [id number] Unknown [id number] Social History Date Type Detail Facility Unknown if ever smoked [facility] Other Sex Assigned At Sex Assigned At Bir th [facility] Other Start: 02-01-2022 End: 02-01-2022 Tobacco smoking status VAIS Never smoked tobacco (finding) [facility] Start: 1970 Sex Assigned At Female F [facility] Medical Equipment Procedure Code Equipment Code Equipment Origin al Text Equipment Identifier Dates Fusion, spine, lumbar, XLIF STRATOFUSE DBM 10CC FDA Start: 09-02-2019 Fusion, spine, lumbar, XLIF Bone-screw internal spinal fixation system, non-sterile ()[id number] FDA Start: 09-02-2019 Fusion, spine, lumbar, XLIF Bone-screw internal spinal fixation system, non-sterile ()[id number] FDA Start: 09-02-2019 Fusion, spine, lumbar, XLIF Bone-screw internal spinal fixation system, non-sterile ()[id number] FDA Start: 09-02-2019 Fusion, spine, lumbar, XLIF XLIF 1 LEVEL MAS REDUCTION FDA Start: 09-02-2019 Fusion, spine, lumbar, XLIF Spinal fusion graft kit ([id number] FDA Start: 09-02-2019 Fusion, spine, lumbar, XLIF Metallic spinal fusion cage, non-sterile ()[id number] FDA Start: 09-02-2019 Fusion, spine, lumbar, XLIF Bone-screw internal spinal fixation system, non-sterile ()[id number] FDA Start: 09-02-2019 Fusion, spine, lumbar, XLIF Bone-screw internal spinal fixation system, non-sterile ()[id number] FDA Start: 09-02-2019 Fusion, spine, lumbar, XLIF STRATOFUSE DBM 10CC FDA Start: 09-02-2019 Fusion, spine, lumbar, XLIF XLIF 1 LEVEL MAS REDUCTION FDA Start: 09-02-2019 Fusion, spine, lumbar, XLIF STRATOFUSE DBM 10CC FDA Start: 09-02-2019 Fusion, spine, lumbar, XLIF XLIF 1 LEVEL MAS REDUCTION FDA Start: 09-02-2019 Fusion, spine, lumbar, XLIF STRATOFUSE DBM 10CC FDA Start: 09-02-2019 Fusion, spine, lumbar, XLIF XLIF 1 LEVEL MAS REDUCTION FDA Start: 09-02-2019 Clinical Notes 05-13-2021 to 12-20-2022 Note Date & Type Note Facility 12-20-2022 Evaluation note Encounter Date Diagnosis Assessment Notes November, Acute non-recurren t maxillary sinusitis (ICD-10 - J01.00) Sinus infections can be triggered by a secondary infection from a viral URI or even seasonal allergies. Take medications as directed. Use saline nasal spray prior to presciption nasal spray. Take medications as directed, and complete all doses of medication even if you start to feel better. Patient advised to follow up with PCP if symptoms persist or worsen. Patient verbalized understanding and agreement with treatment plan. [facility] Other 02-20-2023 Evaluation note* Encounter Date Diagnosis Assessment Notes Treatment Notes Treatment Clinical Notes Aug, Type 2 diabetes mellitus with hyperglycemia, without long-term current use of insulin (ICD-10 - E11.65) Pt will call with her glucose readings at home. Stop mounjaro and add farxiga. Also discussed potential referral to order entry specialist if needed. Aug, Intrinsic atopic dermatitis (ICD-10 - L20.84) Improved on dupixen. [facility] Other 01-16-2023 Evaluation note* Encounter Date Diagnosis Assessment Notes Treatment Notes Treatment Clinical Notes Jul, Dermatitis (ICD-10 - L30.9) derm referral pending [facility] Other 01-12-2023 Evaluation note* Encounter Date Diagnosis Assessment Notes Treatment Notes Treatment Clinical Notes Jul, Dermatitis (ICD-10 - L30.9) [facility] Other 06-27-2022 Evaluation note* Encounter Date Diagnosis Assessment Notes Treatment Notes Treatment Clinical Notes Dec, Dysphagia (ICD-10 - R13.10) Dec, Gagging episode (ICD -10 - R19.8) WILL GAG AND NOT ABLE TO EAT ANYTHING AFTER THAT. PROCEED WITH EGD AT THIS TIME. Dec, Gastroesophageal ref lux disease, unspecified whether esophagitis present (ICD-10 - K21.9) Dec, Irritable bowel syndrome with diarrhea (ICD-10 - K58.0) Dec, Controlled diabetes mellitus type 2 with complications, unspecified whether terminal block assembler insulin use (ICD-10 - E11.8) [facility] Other 10-28-2021 Evaluation note* Encounter Date Diagnosis Assessment Notes Treatment Notes Treatment Clinical Notes Apr, Hip pain (ICD-10 - M25.559) Additionally, patient is voicing complaints of left hip pain. She shows noteable tenderness over the trochanteric bursa. Based on location of pain and exam findings, patient is a candidate for a left trochanteric bursa injection which we will proceed with in conjuntion with a sacroiliac injection. Risks and benefits of procedure explained to patient; patient verbalizes understanding. Apr, Low back pain, unspecified (ICD-10 - M54.50) Patients primary complaint today is increasing left gluteal and hip pain. She shows noteable tenderness over the sacroiliac region upon exam. Patient has failed multiple previous conservative treatment options. Based on location of pain and exam findings, patient is a candidate for a left sacroiliac joint injection which we will proceed with. Risks and benefits of procedure explained to patient; patient verbalizes understanding. In the meantime, patient was provided with at home stretching/ exercises. Anatomy of spine discussed in detail with patient in regards to patients condition. Apr, Other chronic pain (ICD-10 - G89.29) Apr, Other Medical deci dorcas making shows a new problem to me with further workup planned or suggested with the potential for extensive treatment options that were considered with the most applicable given this patient's situation as noted above. Treatment options considered include a combination of physical therapy approaches, pharmacologic management, and interventional procedures. Those most applicable to the patient were discussed at this time. Risk of complications and/or morbidity and mortality is high given that acute and chronic pain poses a threat to life and bodily function if undertreated, poorly treated or with failure to maintain adequate treatment and timely followup. Given the serious and fluctuating nature of pain with extensive consideration for whenever pain changes, there always remains the possibility of prolonged functional impairment requiring constant patient reassessment and high-level medical decision making. The amount and complexity of data reviewed is high given that patient labs, radiology reports, and other test were obtained, reviewed and summarized as applicable from the physician portal and/or outside medical records. Pertinent positive and negative findings were considered in medical decision-making. [facility] Other 10-14-2021 Evaluation note* Encounter Date Diagnosis Assessment Notes Treatment Notes Treatment Clinical Notes Apr, Back pain (ICD-10 - M54.9) This patient has palpable midline thoracolumbar pain that is inflammatory. I think this is best treated with pain management. I have independently reviewed the MRI of the lumbar spine and the plain x-ray shows a stable segment above her fusion and an adequate canal without neural impingement. 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 It is quite uncomfortable and I think best treated with pain management. I also think that she would be a good candidate for orthopedic evaluation. A referral will be sent [employer] Other chief complaint+Reason for visit Narrative* Chief Complaint Amb Documentation referral to sleep lab Reason for Visit YAW (obstructive sle ep apnea) Sleep apnea with use of continuous positive airway pressure (CPAP) Type II diabetes mellitus Wellness examination [facility] Work Phone: Evaluation noteNo InformationNortDepartment [facility] [employer] Other Evaluation noteNo assessment information available [facility] Work Phone: Evaluation note* Diagnosis Onset Date Resolution Status YAW (obstructive sleep apnea) acute Sleep apnea with use of cont inuous positive airway pressure (CPAP) acute Type II diabetes mellitus ac [place] Wellness examination acute [facility] Work Phone: History general Narrative - Reported* Type Description Date Medical History CLOSED FRACRURE RIGHT HUMERUS Medical History MIGRAINES Medical History LOW BACK PAIN Medical History INSOMNIA Medical History HTN Medical History GERD Medical History OBESITY Surgical History back surgery X2 Surgical History PARTIAL HYSTERECTOMY 2009 Surgical History D & C HYSTEROSCOPY 2010 Surgical History hysterectomy Surgical History POSTERIOR LUMBAR INTERBODY FUSI ON 2008 Surgical History LUMBAR SURGERY 2014 Surgical History XLIF-Doctor Hutton Hospitalization History See Above [facility] Other Hospital Discharge instructionsAmbulatory Orders* Referral to Pain Management Location: None Selected * Referral to Speech/PT/OT (PT/OT/SP) Location: None Selected [facility] Work Phone: Reason for Referral Reason 05/27/21 @ 3:30pm Evaluate and Treat Diagnosis 1 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) Referral Organization [facility] urosurgery Referring Provider First Name John Referring Provider Last Name Anni Referring Provider Specialty Neurologica l Surgery Referred Organization [facility] Referred Provider Luke Johnson Referred Address [address],[place],[address] Referred Provider Specialty Pain Medicin e Referral Priority Routine Referral Appointment Date 2021-05-27 General Notes Sailaja Brown 021 10:19:23 AM >Received today and sent [id number] Brown 05/17/2021 07:18:52 AM >Patient has been scheduled Reason *FU 05/25 Evaluate and Treat Diagnosis 1 Trochanteric bursiti s of left hip (M70.62) Referral Organization [facility] urosurgery Referring Provider First Name John Referring Provider Last Name Anni Referring Provider Specialty Neurologica l Surgery Referred Organization [facility] Referred Provider Feroz Schofield Jr Referred Address ,[place], [place],[address] Referred Provider Specialty Orthopedic S urgery Referral Priority Routine General Notes Sailaja Brown 021 10:22:16 AM >Received today and waiting for office notes to be locked before sendingSailaja Brown 05/18/2021 01:54:26 PM >Referral was fax Reason 09/06/22 Recurrent rash - last OV note in Jun scanned into [facility]. Thanks Diagnosis 1 Dermatitis (L30.9) Referral Organization [facility] linfrancisco Referring Provider First Name Denise Referring Provider Last Name Anni Referring Provider Specialty [facility] Referred Organization [facility] Referred Address [address],[place], [place],[address] Referred Provider Specialty Dermatology Referral Priority Routine Referral Appointment Date 2022-09-06 General Notes Nicolasa Christiansen 09:05:27 AM >received today, Can you lock your 08/15 notes so I can send with this referral. Thank You :) Nicolasa Christiansen 08/23/2022 09:54:56 AM >note locked and referral faxed Nicolasa Christiansen 08/30/2022 12:16:47 PM >faxed first attempt letter Nicolasa Christiansen 08/30/2022 04:02:18 PM >received fax that message was left Nicolasa Christiansen 09/06/2022 09:16:31 AM >faxed second attempt letter Nicolasa Christiansen 09/07/2022 03:38:46 PM >faxed first request for consult notes Nicolasa Christiansen 09/09/2022 04:58:46 PM >received notes and sent for review. closing referal at this time Family History No Family History Records Found Relationship Condition Age at Onset Recorded Date/T sumanth Not Specified Chronic obstructive pulmonary disease Un known Asthma Unknown History of esophageal stricture Unknown Arthritis Unknown father Arthritis Unknown brother Diabetes mellitus Unknown Relationship Condition Age at Onset Recorded Date/T sumanth mother Chronic obstructive pulmonary disease Unk nown Asthma Unknown History of esophageal stricture Unknown Arthritis Unknown father Arthritis Unknown brother Diabetes mellitus Unknown Advance Directives No Advanced Directives Records Found Advance Directive Response Recorded Date/ Time Advance Directives No August 07, 2017 1:29pm Advance Directive Response Recorded Date/ Time Advance Directives No August 07, 2017 2:29pm Summary Purpose Chief Complaint and Reason for Visit Chief Complaint m54.50 Chief Complaint m54.50 two broken screw and lower back pain Additional Source Comments REASON FOR VISIT (unrecogniz ed section and content) New MRI L/S increased back p ainREF BY DR HUTTON FOR INFLAMMATION LEFT SI JOINTPain Medicine Office NotesPT HERE AT REQUEST OF DR DENISE HUTTON FOR EVLUATION AND TREATMENT OF GASTROENTERITIS. PATIENT STATES THAT SHE HAS STARTED PANTOPRAZOLE AND THIS HAS HELPED BUT NOT ENOUGH., REFERRAL NOTE RECEIVEDOrthopedic Referral UpdatemessagereferralRashBSCongestion/Sickrefillsrefill Care Teams (unrecognized sec tion and content) Team Status: Active Member Role Status Dates Denise Hutton MD Primary Care Provider Active Team Status: Inactive Member Role Status Dates Denise Hutton MD Primary Care Provide r, Attending Provider Active Start: February 22, 2024 End: February 22, 2024 Team Status: Inactive Member Role Status Dates Denise Hutton MD Primary Care Provider Active ISAAC Lee Attending Provider Active Team Status: Active Member Role Status Dates Denise Hutton MD Primary Care Provider Active Start: October 04, 2023 JANETTE Lechuga Attending Provider Active Start : October 04, 2023 Team Status: Inactive Member Role Status Dates Denise Hutton MD Primary Care Provide r, Attending Provider Active Start: November 03, 2023 End: November 03, 2023 Team Status: Inactive Member Role Status Dates Denise Hutton MD Primary Care Provider Active Start: February 27, 2024 End: February 27, 2024 Margarita Boyd APRN Attending Provider Active Start: February 27, 2024 End: February 27, 2024 Goals (unrecognized section and content) Goals may be documented in a n alternate section INFORMATION SOURCE (unrecogn ized section and content) DATE CREATED AUTHOR 09/17/2022 [facility] DATE CREATED AUTHOR AUTHOR'S ORGANIZ ATION 12/06/2022 [facility] DATE CREATED AUTHOR AUTHOR'S ORGANIZ ATION 03/30/2024 [facility] DATE CREATED AUTHOR AUTHOR'S ORGANKIMBERLY ATION 04/04/2024 [facility] FOR RECORDS PERTAINING TO PATIENTS WHO ARE OR HAVE BEEN ENROLLED IN A CHEMICAL DEPENDENCY/SUBSTANCEABUSE PROGRAM, SOME INFORMATION MAY BE OMITTED. This clinical summary was aggregated from multiple sources. Caution should be exercised in using it in the provision of clinical care. This summary normalizes information from multiple sources, and as a consequence, information in this document may materially change the coding, format and clinical context of patient data. In addition, data may be omitted in some cases. CLINICAL DECISIONS SHOULD BE BASED ON THE PRIMARY CLINICAL RECORDS. [facility] [employer] [facility]. provides no warranty or guarantee of the accuracy or completeness of information in this document.
[2024-04-08 06:57] VITALS: BP 159/100; PULSE 107; TEMP 36.4; O2SAT 98
[2024-04-08 07:05] LABS: Glucometer 215 mg/dL (74-106)
[2024-04-08 07:34] VITALS: BP 171/93; BP 173/90; PULSE 103; PULSE 106; O2SAT 94; O2SAT 95
[2024-04-08] MEDS: IOHEXOL 240 MG/ML - 10 ML VIAL 12 MG INJ (07:37)
[2024-04-08] MEDS: BUPIVACAINE HCL 0.25% PF 25 MG/10 ML VIAL 4 ML INJ (07:37)
[2024-04-08] MEDS: LIDOCAINE HCL 2% 400 MG/20 ML MDV INJ (07:38)
[2024-04-08] MEDS: TRIAMCINOLONE ACETONIDE 40 MG/ML VIAL 80 MG INJ (07:38)
--- NOTE | 2024-04-08 07:38 | W.PM.PROCNOT ---
Date of procedure: 04/08/24 Pre-op diagnosis: Bilateral sacroiliitis Post-op diagnosis: same as pre-op Procedure: Procedure: Bilateral sacroiliac joint injection Medications: Bupivacaine 0.25% 3cc, kenalog 40mg x2 After informed consent was obtained, the patient was brought to the medical procedure unit and placed in the prone position, when a timeout was completed verifying correct patient, procedure, site, positioning, implant, and/or special equipment.? The skin overlying the area was prepped and draped in standard sterile fashion using alcohol.? A 25-gauge needle was inserted towards the left sacroiliac joint under direct fluoroscopic imaging.? Needle tip was advanced until the joint was encountered.? We instilled a total of 2 mL of solution.? The same procedure was then completed on the right side.? Postoperatively needles were removed.? The patient tolerated the procedure well without complication.? The patient reported reduction in pain symptoms postoperatively. Anesthesia: Local Surgeon: Doris Green Pathology: none sent Condition: stable Disposition: no change
== END 2024-04-08 07:40 | disposition home or self-care (01) ==
LOC: SURGOUT 06:40
PROVIDERS: PCP Family Medicine; Visit Provider Anesthesiology
DX: M46.1 Sacroiliitis, not elsewhere classified (principal)
CPT/HCPCS: 27096; 36415; 82948; J0665; J3301; Q9966

== ENCOUNTER 2024-04-18 08:01 | Outpatient (OUT) | payer OTHER, SELFPAY ==
--- OUTSIDE RECORDS SUMMARY | 2024-04-18 08:07 | XMS_ITS | CCD ---
Author Organization [facility] Care Team Providers Care [employer] Demonstrator Name Role Phone AnniSesare Unavailable Luke Johnson Unavailable Stan Cunningham Unavailable MD Denise Hutton Primary Care Provider [phone] ISAAC Yates Attending Provider Denise Hutton Primary Care Unavailable Stan Cunningham Admitting Unavailable Stan Cunningham Attending Unavailable Denise Hutton Primary Care Unavailable Breann Yates Admitting Unavailable Breann Yates Attending Unavailable Denise Hutton Primary Care Unavailable Stan Cunningham Admitting Unavailable HyStan gomez Attending Unavailable Denise Hutton Unavailable NICOLE .KIKO Admitting Unavailable FAWWAD, WESLEY H Primary Care Unavailable NICOLE .KIKO Attending Unavailable NICOLE ., KIKO Consulting Unavailable REQUEST, NONE LISTED Attending Unavaila ble REQUEST, NONE LISTED Consulting Unavaila ble REQUEST, NONE LISTED [...] Unavailable MD Denise Hutton Primary Care Provider MD Denise Hutton Attending Provider [phone] RODRIGUEZ Attending Unavailable Giedraitis MD, Doris Nelson Attending Unavailable Peter THORNTON, Doris Nelson Attending Unavailable Allergies Allergy Classification Reported Allergen(s) Allergy Type Date of Onset Reaction(s) Facility (12 sources) Sulfamethoxazole / Trimethoprim Drug Allergy Unknown [email or web address] Other (5 sources) Sulfamethoxazole; Translations: [sulfamethoxazole] Drug Allergy 08-22-19 [facility] (5 sources) Trimethoprim; Translations: [trimethoprim] Drug Allergy 08-22-19 [facility] (3 sources) Glucophage *ANTIDIABETICS* Allergy to substance 11-02-19 [facility] Medications Current Medications Medication Drug Class(es) Dates [...] Once a day for 28 days sample Aug, Active doxycycline hyclate 100 mg oral capsule [...] End: 01-16-2024 Estradiol Active 0 .ROUTE .COMPLEX 90 January 16, 2024 8:35am TAKE 1 TABLET [...] DAILY for 90 Active FreeStyle Flaca 2 [place] - (7 sources) Start: 09-19-2022 FreeStyle Flaca 2 [place] - as directed for 30 days Aug, [...] 02-05-2024 Lisinopril-Hydr ochlorothiazide Active 0 .ROUTE .COMPLEX 90 February 05, 2024 10:23am TAKE 1 TABLET [...] 30 to 65on 12-05-2022 . . Normal [facility] Comment on above: Result Comment: Perf ormed at: WB Performed By: #### [id number] #### [facility] [address] [address] [address] Axel Zamora Age Gdln ACOG Testing 30-65 Normal [facility] Comment on above: Performed By: #### [id number] #### [facility] [address] [address] [address] Axel Zamora DIAGNOSIS: Comment Normal [facility] Comment on above: Result Comment: UNSA TISFACTORY FOR EVALUATION. Performed at: WB Performed By: #### [id number] #### [facility] [address] [address] [address] Axel Zamora HPV Aptima Negative Normal Negative [facility] Comment on above: Result Comment: This nucleic acid amplification test detects fourteen high-risk HPV types (16,18,31,33,35,39,45,51,52,56,58,59,66,68) without differentiation. Performed at: =G Performed By: #### [id number] #### [facility] [address] [address] [address] Axel Zamora HPV Genotype Reflex Comment Normal [facility] Comment on above: Result Comment: Crit alvarez not met, HPV Genotype not performed. Performed at: WB Performed By: #### [id number] #### [facility] [address] [address] [address] Axel Zamora Methodology: Comment Normal [facility] Comment on above: Result Comment: This liquid based ThinPrep(R) pap test was screened with the use of an image guided system. Performed at: WB Performed By: #### [id number] #### [facility] [address] [address] [address] Axel Zamora Note: Comment Normal [facility] Comment on above: Result Comment: The Pap smear is a screening test designed to aid in the detection of premalignant and malignant conditions of the uterine cervix. It is not a diagnostic procedure and should not be used as the sole means of detecting cervical cancer. Both false-positive and false-negative reports do occur. . Performed at: WB Performed By: #### [id number] #### [facility] [address] [place] [address] Dr. Axel Zamora Performed by: Comment Normal [facility] Comment on above: Result Comment: Margaret Bryant, Culvert Installer (ASCP) Performed at: WB Performed By: #### [id number] #### [facility] [address] [place] [address] Dr. Axel Zamora QC reviewed by: Comment Normal [facility] Comment on above: Result Comment: Teri Barahona, Supervisory Culvert Installer (ASCP) Performed at: WB Performed By: #### [id number] #### [facility] [address] [place] [address] Dr. Axel Zamora Recommendation: Comment Normal [facility] Comment on above: Result Comment: Sugg est follow up as clinically appropriate. Performed at: WB Performed By: #### [id number] #### [facility] [address] [place] [address] Dr. Axel Zamora Specimen adequacy: Comment Normal [facility] Comment on above: Result Comment: Spec imen processed and examined but unsatisfactory for evaluation of epithelial abnormality because of insufficient cellularity. Performed at: WB Performed By: #### [id number] #### [facility] [address] [place] [address] Dr. Axel Zamora GLYCOHEMOGLOBIN A1Con 2022 ADA RECOMMENDATION SEE BELOW Normal [facility] Comment on above: Result Comment: ADA RECOMMENDED LIMIT 4.0 - 6.0 ADA THERAPEUTIC TARGET < 7.0 ACTION SUGGESTED > 7.0 Performed By: #### D ATA1C #### [facility] [address] [place] [address] Dr. Axel Zamora Glucose [Mass/Vol] 126 mg/dL Normal [facility] Comment on above: Performed By: #### D ATA1C #### [facility] [address] [place] [address] Dr. Axel Zamora HbA1c (Bld) [Mass fraction] 6.0 % Normal 4.5-6.2 [facility] Comment on above: Performed By: #### D ATA1C #### [facility] [address] [place] [address] Dr. Axel Zamora CHLAMYDIA/GONOCOCCUS BHARATH (SW AB/URINE/PAPon 09-22-2022 Chlamydia trachomatis, BHARATH Negative Normal Negative [facility] Comment on above: Performed By: #### C T/NGNA #### [facility] [address] [place] [address] Dr. Axel Zamora Neisseria gonorrhoeae, BHARATH Negative Normal Negative [facility] Comment on above: Performed By: #### C T/NGNA #### [facility] [address] [place] [address] Dr. Axel Zamora VAGINITIS/VAGINOSIS DNA PROB Gt 09-21-2022 Corinne species Negative Normal Negative [facility] Comment on above: Performed By: #### V AGINT #### [facility] [address] [place] [address] Dr. Axel Zamora Gardnerella vaginalis Negative Normal Negative [facility] Comment on above: Performed By: #### V AGINT #### [facility] [address] [place] [address] Dr. Axel Zamora Trichomonas vaginalis Negative Normal Negative [facility] Comment on above: Performed By: #### V AGINT #### [facility] [address] [place] [address] Dr. Axel Zamora Superficial Wound Cultureon 09-06-2022 Superficial Wound Culture RIGHT LATERAL DISTAL UPPER ARM No Growth 2 Days PERFORMED BY: [place] [address] PATHOLOGIST ROUGH RICE TENDER LATISHA FRANCO M.D. Normal [facility] Comment on above: Performed By: #### C USUP #### [address] CBC AUTO DIFFon 03-22-2022 BASO # 0.1 103/ul Normal 0.0-0.1 [facility] Comment on above: Performed By: #### C BC #### [facility] [address] [place] [address] Dr. Axel Zamora Basophils/100 WBC (Bld) 0.7 % Normal 0.2-2.0 [facility] Comment on above: Performed By: #### C BC #### [facility] [address] [place] [address] Dr. Axel Zamora EO # 0.3 103/ul Normal 0.0-0.7 [facility] Comment on above: Performed By: #### C BC #### [facility] [address] [place] [address] Dr. Axel Zamora Eosinophils/100 WBC (Bld) 3.7 % Normal 0.9-7.0 [facility] Comment on above: Performed By: #### C BC #### [facility] [address] [place] [address] Dr. Axel Zamora Erythrocyte distribution width (RBC) [Ratio] 12.6 % Normal 11.0-15.0 [facility] Comment on above: Performed By: #### C BC #### [facility] [address] [place] [address] Dr. Axel Zamora Hematocrit (Bld) [Volume fraction] 40.0 % Normal 36.0-48.0 [facility] Comment on above: Performed By: #### C BC #### [facility] [address] [place] [address] Dr. Axel Zamora Hemoglobin (Bld) [Mass/Vol] 13.4 g/dL Normal 12.0-16.0 [facility] Comment on above: Performed By: #### C BC #### [facility] [address] [address] [address] Axel Zamora IG # 0.04 10e3/ul Critically high 0.00-0.03 [facility] Comment on above: Performed By: #### C BC #### [facility] [address] [place] [address] Dr. Axel Zamora IG % 0.6 % Critically high 0.0-0.5 [facility] Comment on above: Performed By: #### C BC #### [facility] [address] [place] [address] Dr. Axel Zamora LYMPH # 2.2 103/ul Normal 1.2-3.8 [facility] Comment on above: Performed By: #### C BC #### [facility] [address] [place] [address] Dr. Axel Zamora Lymphocytes/100 WBC (Bld) 32.1 % Normal 20.5-60.0 [facility] Comment on above: Performed By: #### C BC #### [facility] [address] [place] [address] Dr. Axel Zamora MANUAL DIFF REQ NO Normal [facility] Comment on above: Performed By: #### C BC #### [facility] [address] [place] [address] Dr. Axel Zamora MCH (RBC) [Entitic mass] 31.9 pg Normal 26.7-34.0 [facility] Comment on above: Performed By: #### C BC #### [facility] [address] [place] [address] Dr. Axel Zamora MCHC (RBC) [Mass/Vol] 33.5 g/dL Normal 29.9-35.2 [facility] Comment on above: Performed By: #### C BC #### [facility] [address] [place] [address] Dr. Axel Zamora MCV (RBC) [Entitic vol] 95.2 fL Normal 81.0-99.0 [facility] Comment on above: Performed By: #### C BC #### [facility] [address] [place] [address] Dr. Axel Zamora MONO # 0.6 103/ul Normal 0.3-0.8 [facility] Comment on above: Performed By: #### C BC #### [facility] [address] [place] [address] Dr. Axel Zamora Monocytes/100 WBC (Bld) 8.6 % Normal 1.7-12.0 [facility] Comment on above: Performed By: #### C BC #### [facility] [address] [place] [address] Dr. Axel Zamora NEUT # 3.8 103/ul Normal 1.4-6.5 [facility] Comment on above: Performed By: #### C BC #### [facility] [address] [place] [address] Dr. Axel Zamora Neutrophils/100 WBC (Bld) 54.3 % Normal 43.0-75.0 [facility] Comment on above: Performed By: #### C BC #### [facility] [address] [place] [address] Dr. Axel Zamora Platelet mean volume (Bld) [Entitic vol] 9.3 fL Critically low 9.5-13.5 [facility] Comment on above: Performed By: #### C BC #### [facility] [address] [place] [address] Dr. Axel Zamora PLT 246 103/ul Normal 150-450 [facility] Comment on above: Performed By: #### C BC #### [facility] [address] [place] [address] Dr. Axel Zamora RBC 4.20 106/ul Normal 4.20-5.40 [facility] Comment on above: Performed By: #### C BC #### [facility] [address] [place] [address] Dr. Axel Zamora WBC 7.0 103/ul Normal 4.0-11.0 [facility] Comment on above: Performed By: #### C BC #### [facility] [address] [place] [address] Dr. Axel Zamora CULTURE URINEon 03-22-2022 CULTURE URINE Culture Observations : LIGHT GROWTH OF MIXED GENITAL KUNAL. NO POTENTIAL PATHOGENS SEEN. Normal [facility] Comment on above: Performed By: #### U RCX #### [facility] [address] [place] [address] Dr. Axel Zamora FREE T4on 03-22-2022 Free T4 [Mass/Vol] 0.82 ng/dL Normal 0.76-1.46 [facility] Comment on above: Performed By: #### F T4 #### [facility] [address] [place] [address] Dr. Axel Zamora GLYCOHEMOGLOBIN A1Con 2021 ADA RECOMMENDATION SEE BELOW Normal [facility] Comment on above: Result Comment: ADA RECOMMENDED LIMIT 4.0 - 6.0 ADA THERAPEUTIC TARGET < 7.0 ACTION SUGGESTED > 7.0 Performed By: #### A 1C #### [facility] [address] [place] [address] Dr. Axel Zamora Glucose [Mass/Vol] 128 mg/dL Normal [facility] Comment on above: Performed By: #### A 1C #### [facility] [address] [place] [address] Dr. Axel Zamora HbA1c (Bld) [Mass fraction] 6.1 % Normal 4.5-6.2 [facility] Comment on above: Performed By: #### A 1C #### [facility] [address] [place] [address] Dr. Axel Zamora PROF CHEM 8 (BAS METB)on Anion gap [Moles/Vol] 14.0 mmol/L Normal [facility] Comment on above: Performed By: #### T SH, BMP #### [facility] [address] [address] [address] Axel Zamora Calcium [Mass/Vol] 9.0 mg/dL Normal 8.5-10.1 [facility] Comment on above: Performed By: #### T SH, BMP #### [facility] [address] [address] [address] Axel Zamora Chloride [Moles/Vol] 103 mmol/L Normal 98-107 [facility] Comment on above: Performed By: #### T SH, BMP #### [facility] [address] [place] [address] Dr. Axel Zamora CO2 [Moles/Vol] 24.8 mmol/L Normal 21.0-32.0 [facility] Comment on above: Performed By: #### T SH, BMP #### [facility] [address] [place] [address] Dr. Axel Zamora Creatinine [Mass/Vol] 0.74 mg/dL Normal 0.55-1.02 [facility] Comment on above: Performed By: #### T SH, BMP #### [facility] [address] [place] [address] Dr. Axel Zamora EGFR-AF CITIZEN [place] >60 Normal >=60 [facility] Comment on above: Performed By: #### T SH, BMP #### [facility] [address] [place] [address] Dr. Axel Zamora EGFR-NON AF CITIZEN OF [place] >60 Normal >=60 [facility] Comment on above: Performed By: #### T SH, BMP #### [facility] [address] [place] [address] Dr. Axel Zamora Glucose [Mass/Vol] 125 mg/dL Critically high 74-[address] [facility] Comment on above: Performed By: #### T SH, BMP #### [facility] [address] [place] [address] Dr. Axel Zamora Potassium [Moles/Vol] 3.8 mmol/L Normal 3.5-5.1 [facility] Comment on above: Performed By: #### T SH, BMP #### [facility] [address] [place] [address] Dr. Axel Zamora Sodium [Moles/Vol] 138 mmol/L Normal 136-145 [facility] Comment on above: Performed By: #### T SH, BMP #### [facility] [address] [place] [address] Dr. Axel Zamora Urea nitrogen [Mass/Vol] 14.0 mg/dL Normal 7.0-18.0 [facility] Comment on above: Performed By: #### T SH, BMP #### [facility] [address] [place] [address] Dr. Axel Zamora Urea nitrogen/Creatinine [Mass ratio] 18.9 mg/mg Normal [facility] Comment on above: Performed By: #### T SH, BMP #### [facility] [address] [place] [address] Dr. Axel Zamora TSHon 03-22-2022 TSH 3.074 uIU/mL Normal 0.358-3.740 [facility] Comment on above: Performed By: #### T SH, BMP #### [facility] [address] [place] [address] Dr. Axel Zamora UA RANDOM W/MICROSCOPICon BACTERIA TRACE Abnormal NONE SEEN [facility] Comment on above: Performed By: #### T SH, BMP #### [facility] [address] [place] [address] Dr. Axel Zamora Bilirubin Ql (U) Negative Normal NEGATIVE [facility] Comment on above: Performed By: #### T SH, BMP #### [facility] [address] [place] [address] Dr. Axel Zamora CAST NONE SEEN Normal NONE SEEN [facility] Comment on above: Performed By: #### T SH, BMP #### [facility] [address] [place] [address] Dr. Axel Zamora Clarity (U) CLEAR Normal CLEAR [facility] Comment on above: Performed By: #### T SH, BMP #### [facility] [address] [place] [address] Dr. Axel Zamora Color (U) LT. YELLOW Normal YELLOW [facility] Comment on above: Performed By: #### T SH, BMP #### [facility] [address] [address] [address] Axel Zamora Crystals LM Nom (Urine sed) NONE SEEN Normal NONE SEEN [facility] Comment on above: Performed By: #### T SH, BMP #### [facility] [address] [address] [address] Axel Zamora Epithelial cells LM Ql (Urine sed) RARE Normal NONE SEEN /RARE [facility] Comment on above: Performed By: #### T SH, BMP #### [facility] [address] [address] [address] Axel Zamora Glucose Ql (U) Negative Normal NEGATIVE [facility] Comment on above: Performed By: #### T SH, BMP #### [facility] [address] [place] [address] Dr. Axel Zamora Hemoglobin Ql (U) Negative Normal NEGATIVE [facility] Comment on above: Performed By: #### T SH, BMP #### [facility] [address] [address] [address] Axel Zamora Ketones Ql (U) Negative Normal NEGATIVE [facility] Comment on above: Performed By: #### T SH, BMP #### [facility] [address] [place] [address] Dr. Axel Zamora LEUKOCYTES Negative Normal NEGATIVE [facility] Comment on above: Performed By: #### T SH, BMP #### [facility] [address] [address] [address] Axel Zamora MUCOUS TRACE Abnormal NONE SEEN [facility] Comment on above: Performed By: #### T SH, BMP #### [facility] [address] [address] [address] Axel Zamora Nitrite Ql (U) Negative Normal NEGATIVE [facility] Comment on above: Performed By: #### T SH, BMP #### [facility] [address] [place] [address] Dr. Axel Zamora pH (U) 6.0 [pH] Normal 5-9 [facility] Comment on above: Performed By: #### T SH, BMP #### [facility] [address] [address] [address] Axel Zamora RBC 0-2 Normal 0-2 [facility] Comment on above: Performed By: #### T SH, BMP #### [facility] [address] [address] [address] Axel Zamora SPEC GRAVITY 1.020 Normal 1.005-<=1.025 [facility] Comment on above: Performed By: #### T SH, BMP #### [facility] [address] [address] [address] Axel Zamora UA PROTEIN Negative Normal NEGATIVE/ TRACE [facility] Comment on above: Performed By: #### T SH, BMP #### [facility] [address] [place] [address] Dr. Axel Zamora Urobilinogen Qn (U) 0.2 {Kuldip'U}/dL Normal 0.2 - 1. 0 [facility] Comment on above: Performed By: #### T SH, BMP #### [facility] [address] [place] [address] Dr. Axel Zamora WBC NONE SEEN Normal NONE SEEN [facility] Comment on above: Performed By: #### T SH, BMP #### [facility] [address] [place] [address] Dr. Axel Zamora Glucose Poct Glucometerson 0 02-01-2022 Commemt1 Glu2: Cleaned Meter Normal [facility] Comment on above: Result Comment: PERF ORMED BY: [facility] [address] [place] [address] PATHOLOGIST ROUGH RICE TENDER LATISHA RFANCO M.D. Performed By: #### G LULS #### Point of Care testing , Glucose [Mass/Vol] 103 mg/dL Normal [facility] Comment on above: Result Comment: [facility] Glucose Reference Range is dependent on [...] DUE TO SPECIMEN TOO OLD FOR BD MAX PCR TESTING. MOLECULARBIOLOGIST CHANGED TEST PLATFORM TO CEPBiotteryED 01/28/22 0700 [facility] Worker?: N COVID-19 [...] or Cepheid Disclaimer revoked sooner. PERFORMED BY: [place] [address] PATHOLOGIST ROUGH RICE TENDER LATISHA FRANCO M.D. Normal [facility] Comment on above: Performed By: #### C OVID19 FLU RSV, CEPHEID NEG #### [address] Cepheid COVID PCR Negativeon 01-27-2022 SARS-CoV-2 (COVID-19) RNA BHARATH+probe Ql (Unsp spec) Negative Normal Negative [facility] Comment on above: Result Comment: This is a duplicate Cepheid Xpert Xpress CoV-2/Flu/RSV Plus RNA by RT-PCR result to be used for statistical tracking purpose only. PERFORMED BY: [place] [address] PATHOLOGIST ROUGH RICE TENDER LATISHA FRANCO M.D. Performed By: #### C OVID19 FLU RSV, CEPHEID NEG #### [id number] [facility] Vital Signs Date Time Vital Sign Value Performing Clinician Facility 02-27-2024 09:05040 Body weight 106.14 kg MD Denise Hutton Work Phone: [facility] 11-03-2023 14:33040 Body height 156.21 cm [facility] 11-03-2023 14:330400 Body mass index (BMI) [Ratio] 43.3 kg/m2 [facility] 11-03-2023 14:040 Body weight 105.8 kg [facility] 11-03-2023 14:33040 Diastolic blood pressure 86 mm[Hg] [facility] 11-03-2023 14:33040 Heart rate 112 /min [facility] 11-03-2023 14:330400 Systolic blood pressure 126 mm[Hg] [facility] 12-20-2022 14:30040 Body height 156.21 cm Denise Hutton Other [email or web address] Other 12-20-2022 14:30-0400 Body mass index (BMI) [Ratio] 43.49 kg/m2 Denise Hutton Other [email or web address] Other 12-20-2022 14:30-0400 Body temperature 98 [degF] Denise Hutton Other [email or web address] Other 12-20-2022 14:30-0400 Body weight 106.14 kg Denise Hutton Other [email or web address] Other 12-20-2022 14:30-0400 Diastolic blood pressure 80 mm[Hg] Denise Hutton Other [email or web address] Other 12-20-2022 14:30-0400 Systolic blood pressure 130 mm[Hg] Denise Hutton Other [email or web address] Other 09-19-2022 13:45-0500 Body height 156.21 cm Denise Hutton Other [email or web address] Other 09-19-2022 13:45-0500 Body mass index (BMI) [Ratio] 42.75 kg/m2 Denise Hutton Other [email or web address] Other 09-19-2022 13:45-0500 Body weight 104.33 kg Denise Hutton Other [email or web address] Other 09-19-2022 13:45-0500 Diastolic blood pressure 72 mm[Hg] Denise Hutton Other [email or web address] Other 09-19-2022 13:45-0500 SaO2% (BldA) [Mass fraction] 97 % Denise Hutton Other [email or web address] Other 09-19-2022 13:45-0500 Systolic blood pressure 126 mm[Hg] Denise Hutton Other [email or web address] Other 08-15-2022 11:45-0500 Body height 156.21 cm Denise Hutton Other [email or web address] Other 08-15-2022 11:45-0500 Body mass index (BMI) [Ratio] 43.68 kg/m2 Denise Hutton Other [email or web address] Other 08-15-2022 11:45-0500 Body weight 106.6 kg Denise Hutton Other [email or web address] Other 08-15-2022 11:45-0500 Diastolic blood pressure 80 mm[Hg] Denise Hutton Other [email or web address] Other 08-15-2022 11:45-0500 SaO2% (BldA) [Mass fraction] 99 % Denise Hutton Other [email or web address] Other 08-15-2022 11:45-0500 Systolic blood pressure 128 mm[Hg] Denise Hutton Other [email or web address] Other 01-24-2022 10:45-0400 Body height 157.48 cm Stan Cunningham Other [email or web address] Other 01-24-2022 10:45-0400 Body mass index (BMI) [Ratio] 42.98 kg/m2 Stan Cunningham Other [email or web address] Other 01-24-2022 10:45-0400 Body weight 106.6 kg Stan Cunningham Other [email or web address] Other 05-13-2021 14:40-0400 Body height 157.48 cm John Hutton Other [email or web address] Other 05-13-2021 14:40-0400 Body mass index (BMI) [Ratio] 45.9 kg/m2 John Hutton Other [email or web address] Other 05-13-2021 14:40-0400 Body weight 113.85 kg John Hutton Other [email or web address] Other Encounters Encounter Date Encounter Type Care Provider Facility Start: 04-08-2024 End: 04-08-2024 ambulatory Doris Green MD Facility:[facility] Start: 04-03-2024 End: 04-03-2024 ambulatory KONSTANTIN GAYTAN Not Available Start: 03-18-2024 End: 03-18-2024 ambulatory Doris Green MD Facility:[facility] Start: 02-27-2024 End: 02-27-2024 ambulatory MD Denise Hutton Work Phone: [facility] Work Phone: Start: 02-27-2024 End: 02-27-2024 Patient encounter procedure MD Denise Hutton Work Phone: [facility] Work Phone: Start: 02-22-2024 End: 02-22-2024 ambulatory MD Denise Hutton Work Phone: [facility] Work Phone: Start: 02-22-2024 End: 02-22-2024 Patient encounter procedure MD Denise Hutton Work Phone: [facility] Work Phone: Start: 11-03-2023 Patient encounter status [facility] Start: 11-03-2023 End: 11-03-[address] [facility] Work Phone: Start: 11-03-2023 End: 11-03-2023 Encounter for general adult medical examination without abnormal findings [facility] Start: 11-03-2023 End: 11-03-2023 Patient encounter procedure [facility] Work Phone: Start: 10-04-2023 Non-patient / Non-visit [facility] Physician [facility] Work Phone: Start: 01-20-2023 End: 01-20-2023 ambulatory Denise Hutton Other [email or web address] Other Start: 01-20-2023 Telephone encounter Denise Hutton [facility] Start: 01-18-2023 End: 01-18-2023 ambulatory Denise Hutton Other [email or web address] Other Start: 01-18-2023 Telephone encounter Denise Hutton [facility] Start: 12-20-2022 End: 12-20-2022 ambulatory Denise Hutton Other [email or web address] Other Start: 12-20-2022 Office outpatient visit 15 minutes Denise Hutton [facility] Start: 11-28-2022 End: 11-28-[address] NATALIE PRAJAPATI . Facility: Start: 09-26-2022 End: 09-27-2022 ambulatory NONE LISTED REQUEST Facility: Start: 09-19-2022 End: 09-19-2022 ambulatory KIKO RIVERA . [place] [facility] Other Start: 09-19-2022 Office outpatient visit 15 minutes Denise Hutton [facility] Start: 09-06-2022 End: 09-06-2022 ambulatory Denise Hutton Facility:[facility] Start: 09-06-2022 End: 09-06-2022 ambulatory MD Denise Hutton Work Phone: [facility] Work Phone: Start: 09-06-2022 End: 02-07-2023 Departed Referred MD Denise Hutton Work Phone: [facility] [place] Work Phone: Start: 08-17-2022 End: 08-17-2022 ambulatory Denise Hutton Other [email or web address] Other Start: 08-17-2022 Telephone encounter Denise Hutton [facility] Start: 08-15-2022 End: 08-15-2022 ambulatory Denise Hutton Other [email or web address] Other Start: 08-15-2022 Office outpatient visit 15 minutes Denise Hutton [facility] Start: 08-11-2022 End: 08-11-2022 ambulatory Denise Hutton Other [email or web address] Other Start: 08-11-2022 Telephone encounter Denise Hutton [facility] Start: 05-10-[address] DENISE HUTTON Facil ity:[facility] Start: 03-22-2022 End: 03-23-2022 ambulatory SHAIKH Chad SALTER Facility:[facility] Start: 02-01-2022 End: 02-01-2022 ambulatory Denise Hutton Facility:[facility] Start: 01-27-2022 End: 01-27-2022 ambulatory Denise Hutton Facility:[facility] Start: 01-24-2022 End: 01-24-2022 ambulatory Stan Cunningham Other [email or web address] Other Start: 01-24-2022 Office outpatient ne w 45 minutes Stan Cunningham [facility] Start: 08-19-2021 End: 08-19-2021 ambulatory John Hutton Other [email or web address] Other Start: 08-19-2021 Telephone encounter John Hutton [facility] [employer] [facility] Start: 06-01-2021 End: 06-01-2021 ambulatory Luke Johnson Other [email or web address] Other Start: 06-01-2021 Telephone encounter Luke JUAN G [employer] Start: 05-27-2021 Office consultation new/estab patient 60 min Luke Johnson [facility] [place] Start: 05-13-2021 Office outpatient visit 25 minutes John Hutton [facility] Neurosurgery Procedures Date Procedure Procedure Detail Performing Clinician Start: 02-22-2024 X-ray of lumbar spin e, six views including bending views MD Denise Hutton Work Phone: Plan of Treatment Date Care Activity Detail Author Start: 02-27-2024 Patient referral [facility] Work Phone: Start: 09-06-2022 Superficial Wound Culture Superficial Wound Culture [facility] Bacteria identified in Unspecified specimen by Aerobe culture [facility] Comprehensive metabo lic 2000 panel - Serum or Plasma [facility] Microalbumin [Mass/volume] in Urine [facility] Patient referral [facility] Work Phone: [facility] Immunizations Immunization Date Immunization Notes Care Provider Fa cility 11-30-2020 COVID-19 mRNA Comirnatjeremy (Pfizer) MD Denise Hutton Work Phone: [facility] 11-09-2020 COVID-19 mRNA Comirangelo (Pfizer) MD Denise Hutton Work Phone: [facility] Payers Date Payer Category Payer Private Health Insurance 2022 Self-pay [id number] 1970 Unknown [id number] 1970 Unknown [id number] 1970 Unknown [id number] 1970 Unknown [id number] [id number] 1970 Unknown [id number] 1970 Unknown [id number] 1970 Unknown [id number] 1959 Private Health Insurance [id number] 1959 Private Health Insurance [id number] 1959 Self-pay [id number] Unknown [place] BC/BS [id number] Unknown [id number] Unknown [id number] Unknown [id number] [id number] Unknown [id number] [id number] Social History Date Type Detail Facility Unknown if ever smoked [email or web address] Other Sex Assigned At Sex Assigned At Bir th [email or web address] Other Start: 02-01-2022 End: 02-01-2022 Tobacco smoking status MSIS Never smoked tobacco (finding) [facility] Start: 1970 Sex Assigned At Female F [facility] Medical Equipment Procedure Code Equipment Code Equipment Origin al Text Equipment Identifier Dates Fusion, spine, lumbar, XLIF STRATOFUSE [id number] [id number] FDA Start: 09-02-2019 Fusion, spine, lumbar, XLIF Bone-screw internal spinal fixation system, non-sterile ()[id number] FDA Start: 09-02-2019 Fusion, spine, lumbar, XLIF Bone-screw internal spinal fixation system, non-sterile ()[id number] FDA Start: 09-02-2019 Fusion, spine, lumbar, XLIF Bone-screw internal spinal fixation system, non-sterile ()[id number] FDA Start: 09-02-2019 Fusion, spine, lumbar, XLIF XLIF 1 LEVEL MAS REDUCTION FDA Start: 09-02-2019 Fusion, spine, lumbar, XLIF Spinal fusion graft kit ()[id number] [id number] [id number] FDA Start: 09-02-2019 Fusion, spine, lumbar, XLIF Metallic spinal fusion cage, non-sterile ()[id number] FDA Start: 09-02-2019 Fusion, spine, lumbar, XLIF Bone-screw internal spinal fixation system, non-sterile ()[id number] FDA Start: 09-02-2019 Fusion, spine, lumbar, XLIF Bone-screw internal spinal fixation system, non-sterile ()[id number] FDA Start: 09-02-2019 Fusion, spine, lumbar, XLIF [...] verbalized understanding and agreement with treatment plan. [email or web address] Other 02-20-2023 Evaluation note* Encounter Date Diagnosis Assessment Notes Treatment Notes Treatment Clinical Notes Aug, Type 2 diabetes mellitus with hyperglycemia, without long-term current use of insulin (ICD-10 - E11.65) Pt will call with her glucose readings at home. Stop gilberto and add farxiga. Also discussed potential referral to database management specialist if needed. Aug, Intrinsic atopic dermatitis (ICD-10 - L20.84) Improved on dupixen. [email or web address] Other 01-16-2023 Evaluation note* Encounter Date Diagnosis Assessment Notes Treatment Notes Treatment Clinical Notes Jul, Dermatitis (ICD-10 - L30.9) derm referral pending [email or web address] Other 01-12-2023 Evaluation note* Encounter Date Diagnosis Assessment Notes Treatment Notes Treatment Clinical Notes Jul, Dermatitis (ICD-10 - L30.9) [email or web address] Other 06-27-2022 Evaluation note* Encounter Date Diagnosis [...] mellitus type 2 with complications, unspecified whether long term care social worker insulin use (ICD-10 - E11.8) [email or web address] Other 10-28-2021 Evaluation note* Encounter Date Diagnosis [...] negative findings were considered in medical decision-making. [email or web address] Other 10-14-2021 Evaluation note* Encounter Date Diagnosis [...] orthopedic evaluation. A referral will be sent [email or web address] Other chief complaint+Reason for visit Narrative* Chief Complaint Amb Documentation referral to sleep lab Reason for Visit YAW (obstructive sle ep apnea) Sleep apnea with use of continuous positive airway pressure (CPAP) Type II diabetes mellitus Wellness examination [facility] Work Phone: Evaluation noteNo [employer] Other Evaluation noteNo assessment information available [facility] Work Phone: Evaluation note* Diagnosis Onset Date Resolution Status YAW (obstructive sleep apnea) acute Sleep apnea with use of cont inuous positive airway pressure (CPAP) acute Type II diabetes mellitus ac boaz Wellness examination acute [facility] Work Phone: History general Narrative - Reported* [...] History XLIF-Doctor Hutton Hospitalization History See Above [email or web address] Other Hospital Discharge instructionsAmbulatory Orders* Referral to Pain Management Location: None Selected * Referral to Speech/PT/OT (PT/OT/SP) Location: None Selected [facility] Work Phone: Reason for Referral Reason 05/27/21 @ 3:30pm Evaluate and Treat Diagnosis 1 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) Referral Organization [facility] Ne urosurgery Referring Provider First Name John Referring Provider Last Name Anni Referring Provider Specialty Neurologica l Surgery Referred Organization [facility] Referred Provider Luke Johnson Referred Address [address],[address] Referred Provider Specialty Pain Medicin e Referral Priority Routine Referral Appointment Date 2021-05-27 General Notes Sailaja Brown 021 10:19:23 AM >Received today and sent [id number] Brown 05/17/2021 07:18:52 AM >Patient has been scheduled Reason *FU 05/25 Evaluate and Treat Diagnosis 1 Trochanteric bursiti s of left hip (M70.62) Referral Organization [facility] urosurgery Referring Provider First Name John Referring Provider Last Name Anni Referring Provider Specialty Neurologica l Surgery Referred Organization [facility] Referred Provider Feroz Schofield Jr Referred Address ,[place], [place],[address] Referred Provider Specialty Orthopedic S urgery Referral Priority Routine General Notes Sailaja Brown 021 10:22:16 AM >Received today and waiting for office notes to be locked before sendingSailaja Brown 05/18/2021 01:54:26 PM >Referral was fax Reason 09/06/22 Recurrent rash - last OV note in Jun scanned into [facility]. Thanks Diagnosis 1 Dermatitis (L30.9) Referral Organization [facility] Referring Provider First Name Denise Referring Provider Last Name Anni Referring Provider Specialty Family Medi cine Referred Organization [facility] Referred Address [address],[place],[address] Referred Provider Specialty Dermatology Referral Priority Routine [...] section and content) DATE CREATED AUTHOR 09/17/2022 [facility] DATE CREATED AUTHOR AUTHOR'S ORGANIZ ATION 12/06/2022 [facility] pital DATE CREATED AUTHOR AUTHOR'S ORGANIZ ATION 04/04/2024 [facility] DATE CREATED AUTHOR AUTHOR'S ORGANIZ ATION 04/14/2024 [facility] FOR RECORDS PERTAINING TO PATIENTS WHO ARE [...] BE BASED ON THE PRIMARY CLINICAL RECORDS. [employer] provides no warranty or guarantee of the accuracy or completeness of information in this document.
--- NOTE | 2024-04-18 08:30 | P.CN_ITS ---
Consult Note: HPI Data of Consult Patient: new to practice Consult date: 03/18/24 Requesting Physician: Ayla Tolliver NP Primary Care Provider: Denise Baker MD Consult Narrative Reason for consult: low back, buttock pain Narrative: 53yof who presents for evaluation. several months of worsening low back and buttock pain, occasionally notes shooting pain into bilateral lower extremities. has had two lumbar surgeries in the past, fused from l2-5. imaging reviewed, which shows multilevel degnerative changes. currently engaged in physical therapy and has engaged in >6 weeks of provider directed home exercises, without lasting benefit. uses ibuprofen, with some decreasing benefit. denies adverse med side effects. upcoming NS consult with Dr Baker. recently underwent bilateral SIJ injection with 80% improvement ongoing. cc:: CC: Ayla Tolliver NP Review of Systems ROS Status of ROS 10 or more systems reviewed and unremark able except as noted in history and below Musculoskeletal Reports: back pain, extremity pain and joint pain PFSH [facility] Medical History (Updated 04/18/24 @ 08:32 by Ayla Tolliver NP) Low back pain ?M54.50 - Low back pain, unspecified (ICD-10) Acid reflux ?K21.9 - Gastro-esophageal reflux disease without esophagitis (ICD-10) Diabetes ?E11.9 - Type 2 diabetes mellitus without complications (ICD-10) Sleep apnea ?G47.30 - Sleep apnea, unspecified (ICD-10) High cholesterol ?E78.00 - Pure hypercholesterolemia, unspecified (ICD-10) Hypertension ?I10 - Essential (primary) hypertension (ICD-10) Surgical History History of esophagogastroduodenoscopy ?Z98.890 - Other specified postprocedural states (ICD-10) H/O: hysterectomy ?Z90.710 - Acquired absence of both cervix and uterus (ICD-10) H/O lumbosacral spine surgery ?Z98.890 - Other specified postprocedural states (ICD-10) Meds Home Medications and Allergies Home Medications ?Medication ?Instructions ?Recorded ?Confirmed ?Type celecoxib 200 mg capsule (Celebrex) 200 mg PO BID 03/18/24 04/08/24 History cetirizine 10 mg tablet (Zyrtec) 10 mg PO DAILY PRN allergy symptoms 03/18/24 04/08/24 History empagliflozin 25 mg tablet 25 mg PO DAILY 03/18/24 04/08/24 History (Jardiance) estradiol 1 mg tablet 1 mg PO DAILY 03/18/24 04/08/24 History fluticasone propionate 50 1 spray intranasal DAILY PRN 03/18/24 04/08/24 History mcg/actuation nasal allergy symptoms spray,suspension lisinopril 20 1 tab PO DAILY 03/18/24 04/08/24 History mg-hydrochlorothiazide 12.5 mg tablet metformin 1,000 mg tablet 1,000 mg PO DAILY 03/18/24 04/08/24 History montelukast 10 mg tablet 10 mg PO DAILY 03/18/24 04/08/24 History pantoprazole 40 mg tablet,delayed 40 mg PO DAILY 03/18/24 04/08/24 History release Allergies Allergy/AdvReac Type Severity Reaction Status Date / Time sulfamethoxazole Allergy Unknown Rash Verified 04/08/24 06:48 [From Bactrim] trimethoprim [From Bactrim] Allergy Unknown Rash Verified 04/08/24 06:48 Exam Narrative Exam Narrative: Psych-alert and oriented x 3. Attentive and appropriate, constitutionally normal, displays normal mood and affect per situation.? There are no obvious deficits in memory, reasoning, or intellect.? Skin-no obvious rashes, bruising, erythema noted to the patient's area of pain. Extremities- extremities are warm with minimal edema and palpable pulses. Lumbar-no significant tenderness to palpation noted in the lumbar spine and paraspinal musculature.? Pain is elicited with extension, and lateral rotation of the lumbar spine. Range of motion is slightly diminished with these motions due to pain. Facet loading maneuvers are positive bilaterally and do appear to be concordant with the patient's normal complaints of pain.? Sacroiliac - tenderness to palpation over bilateral PSIS. Positive Ganga's bilaterally. Positive thigh thrust bilaterally. Coordination remains intact.? Gait remains non-antalgic. Assessment and Plan Assessment and Plan (1) Sacroiliac joint pain: (2) Lumbar postlaminectomy syndrome: (3) Myofascial pain: (4) Chronic lumbar radiculopathy: Plan start baclofen 5-10mg TID PRN pain/spasms continue f/u with Dr Baker return after cleared by NS, will consider TFESIs
== END 2024-04-18 08:02 | disposition home or self-care (01) ==
PROVIDERS: PCP Family Medicine; Visit Provider Nurse Practitioner
DX: M53.3 Sacrococcygeal disorders, not elsewhere classified (principal); M96.1 Postlaminectomy syndrome, not elsewhere classified; M79.18 Myalgia, other site; M54.16 Radiculopathy, lumbar region
CPT/HCPCS: G0463

== ENCOUNTER 2024-10-28 06:48 | Outpatient (OUT) | payer OTHER, SELFPAY ==
--- OUTSIDE RECORDS SUMMARY | 2024-10-28 06:51 | XMS_ITS | CCD ---
Author Organization [facility] Care Team Providers Care Solar Mechanical Engineer Name Role Phone John Hutton Unavailable Luke Johnson Unavailable Stan Cunningham Unavailable MD Denise Hutton Primary Care Provider ISAAC Yates Attending Provider Denise Hutton Primary Care Unavailable Stan Cunningham Admitting Unavailable Stan Cunningham Attending Unavailable Denise Hutton Primary Care Unavailable Breann Yates Admitting Unavailable Breann Yates Attending Unavailable Denise Hutton Primary Care Unavailable Stan Cunningham Admitting Unavailable HyStan gomez Attending Unavailable Denise Hutton Unavailable KIKO ART Admitting Unavailable FAWWAD, WESLEY H Primary Care Unavailable NICOLE .KIKO Attending Unavailable NICOLE .KIKO Consulting Unavailable REQUEST, NONE LISTED Attending Unavaila ble REQUEST, DR JACKSON LISTED Consulting Unavaila ble REQUEST, NONE LISTED Admitting Unavaila ble FAWWAD, WESLEY H Primary Care Unavailable ANNI, DR DENISE Metzger Admitting Unavailable FAWWAD, WESLEY H Primary Care Unavailable HUTTON, DR DENISE Metzger Attending Unavailable FAWWAD, WESLEY H Primary Care Unavailable HUTTON, DR DENISE Metzger Attending Unavailable ANNI, DR DENISE Metzger Consulting Unavailable ANNI, DR DENISE Metzger Admitting Unavailable ALO ., DR ESTRADA Attending Unavailable ALO ., DR ESTRADA Consulting Unavailable FAWWAD, WESLEY H Primary Care Unavailable ALO ., DR ESTRADA Admitting Unavailable MD Denise Hutton Primary Care Provider MD Denise Hutton Attending Provider [phone] KONSTANTIN GAYTAN Attending Unavailable Peter THORNTON, Doris Nelson Attending Unavailable Peter THORNTON, Doris Nelson Attending Unavailable Denise Hutton MD Primary Care Provider Allergies Allergy Classification Reported Allergen(s) Allergy Type Date of Onset Reaction(s) Facility (14 sources) Sulfamethoxazole / Trimethoprim Drug Allergy 3 Rash [facility] Work Phone: (6 sources) Sulfamethoxazole; Translations: [sulfamethoxazole] Drug Allergy 0 [facility] (6 sources) Trimethoprim; Translations: [trimethoprim] Drug Allergy 0 [facility] (4 sources) Glucophage *ANTIDIABETICS* Allergy to substance 4 [facility] Medications Current Medications Medication Drug [...] a day for 10 day(s) November, Active celecoxib 200 mg oral capsule (1 source) Nonsteroidal Anti-inflammatory Drug take 1 capsule by mouth in the morning celecoxib (CeleBREX) 200 MG capsule Take 200 mg by mouth in the morning and 200 mg before bedtime. Active cetirizine hydrochloride 10 mg oral tablet (14 sources) Histamine-1 Receptor Antagonist Start: 08-22-2019 take 1 tablet by mouth once daily at bedtime Cetirizine (Zyrtec) 10 mg Tablet Active 10 MG PO Daily at bedtime August 22, 2019 1:00am take 1 tablet by mouth in the mo rning Cetirizine HCl (ZyrTEC ALLERGY) 10 MG capsule Take 1 tablet by mouth in the morning. Active dapagliflozin 5 mg oral tablet (4 sources) [...] MOUTH TWICE A DAY for 7 Active estradiol 1 mg oral tablet (20 sources) Estrogen Start: 10-18-2023 End: 10-08-2024 Estradiol 1 mg tablet Active 0 .ROUTE .COMPLEX 90 October 08, 2024 10:25am TAKE 1 TABLET DAILY Start: 03-27-2023 estradiol (Est race) 0.1 MG/GM vaginal cream Indications: Dyspareunia in female APPLY 2 GRAMS VAGINALLY AT BEDTIME FOR 14 DAYS, THEN EVERY OTHER DAY FOR 1 MONTH 85 g 1 03/27/2023 Active Start: 08-22-2019 End: 10-18-2023 take 1 tablet by mouth once daily Estradiol 1 mg Tablet Discontinued 1 MG PO Daily August 22, 2019 1:00am October 18, 2023 8:31am estrogens, conjugated (halfway) 0.625 mg/ml vaginal cream (2 sources) Estrogen Start: 01-03-2023 Estrogens Conj ugated (Premarin) 0.625 MG/GM cream Indications: Dyspareunia in female Insert 0.5 g into the vagina if needed (use twice weekly prn for maintance dose). 30 g 2 01/03/2023 Active fluticasone propionate 0.05 mg/actuat metered dose nasal spray (15 sources) Corticosteroid Start: 04-03-2024 take 2 spray(s) nasal route once daily Fluticasone Propionate 50 mcg/actuation spray,suspension Active 0 .ROUTE .COMPLEX 48 April 03, 2024 8:20am USE 2 SPRAYS IN EACH NOSTRIL DAILY Start: 08-22-2019 End: 04-03-2024 Fluticasone Propionate 50 mc g/actuation [place],Suspension Discontinued 2 SPRAY INTRANASAL Daily August 22, 2019 1:00am April 03, 2024 8:20am take 1 spray(s) nasa l route once daily fluticasone (Flonase) 50 MCG/ACT nasal spray Administer 1 spray into each nostril 1 (one) time each day at the same time. Active take 2 spray(s) nasa l route once daily Fluticasone Propionate 50 MCG/ACT USE 2 SPRAYS IN EACH NOSTRIL DAILY for 90 Active FreeStyle Flaca 2 [place] - (7 sources) Start: 09-19-2022 FreeStyle Libr e 2 [place] - as directed for 30 days Aug, Active FreeStyle Flaca 2 Sensor - (7 sources) Start: 09-19-2022 FreeStyle Libr e 2 Sensor - as directed for 30 days Aug, Active hydroCHLOROthiazide 12.5 mg / lisinopril 20 mg oral tablet (20 sources) Thiazide Diuretic, Angiotensin Converting Enzyme Inhibitor Start: 02-05-2024 End: 08-05-2024 Lisinopril-Hydroc hlorothiazide 20-12.5 mg tablet Active 0 .ROUTE .COMPLEX 90 August 05, 2024 1:44pm TAKE 1 TABLET DAILY Start: 08-22-2019 End: 02-05-2024 take 1 tablet by mouth once daily Lisinopril-Hydrochlorothiazide 20-12.5 m g Tablet Discontinued 1 TAB PO Daily August 22, 2019 1:00am February 05, 2024 10:23am ibuprofen 800 mg oral tablet (20 sources) Nonsteroidal Anti-inflammatory Drug Start: 10-04-2023 End: 04-03-2024 Ibuprofen (Ibu) 800 mg tablet Active 0 .ROUTE .COMPLEX 270 April 03, 2024 8:20am TAKE 1 TABLET 3 TIMES DAILYAS NEEDED Start: 10-04-2023 End: 10-04-2023 take 1 tablet by mouth three times daily as needed Ibuprofen 800 mg tablet Discontinued 800 MG PO Three times daily as needed October 04, 2023 1:00am October 04, 2023 3:08pm Start: 08-22-2019 End: 09-04-2019 take 1 tablet by mouth three times daily Ibuprofen 800 mg Tablet Discontinued 800 MG PO Three times daily [...] Active metFORMIN hydrochloride 1000 mg oral tablet (20 sources) Biguanide Start: Metformin 1,000 mg tablet Active 0 .ROUTE .COMPLEX November 08, 2023 9:58am TAKE 1 TABLET ONCE DAILY WITH A MEAL Start: 11-03-2023 End: 11-08-2023 take 1 tablet by mouth once daily Metformin 1,000 mg tablet Discontinued 1 TAB PO Daily November 03, [...] Oct, Active Start: 08-22-2019 End: 02-01-2022 take 1 tablet by mouth twice daily Metformin 500 mg Tablet Discontinued 500 MG PO Twice daily August [...] nostril Nasally Once a day Active montelukast (20 sources) Leukotriene Receptor Antagonist Start: 04-27-20 Montelukast 10 mg tablet Active 0 .ROUTE .COMPLEX April 27, 2024 7:31am TAKE 1 TABLET AT BEDTIME Start: 08-22-2019 End: 04-27-2024 take 1 tablet by mouth once daily in the morning Montelukast 10 mg Tablet Discontinued 10 MG PO Every morning August 22, 2019 1:00am April 27, 2024 7:32am Nasonex 50 MCG/ACT (2 sources) take 2 spray(s) nasal route once daily Nasonex 50 MCG/ACT 2 sprays in each nostril Nasally Once a day Active pantoprazole 40 mg delayed release oral tablet (18 sources) Proton Pump Inhibitor Start: Pantoprazole 40 mg tablet,delayed release (DR/EC) Active 0 .ROUTE .COMPLEX 90 November 08, 2023 9:58am TAKE 1 TABLET ONCE DAILY Start: 02-01-2022 End: 11-08-2023 take 1 tablet by mouth once daily Pantoprazole 40 mg tablet,delayed release (DR/EC) Discontinued 40 MG PO Daily February 01, 2022 12:00am November 08, 2023 9:59am triamcinolone acetonide 0.001 mg/mg topical ointment (2 sources) Corticosteroid Start: 10-25-2022 triamcinolone (Kenalog) 0.1 % ointment Apply topically 2 (two) times a day. 10/25/2022 Active Completed/Discontinued Medications Medication Drug Class(es) Dates Sig (Normalized) Sig (Original) cephalexin 500 mg oral capsule (5 sources) Cephalosporin Antibacterial Start: 09-04-2019 End: 02-01-2022 take 1 capsule by mouth every eight hours Cephalexin (Keflex) 500 mg capsule Discontinued 500 MG PO Q8H 15 September 04, 2019 1:00am February 01, 2022 6:04am cyclobenzaprine hydrochloride 10 mg oral tablet (5 sources) Muscle Relaxant Start: 09-04-2019 End: 02-01-2022 take 1 tablet by mouth three times daily as needed for muscle spasms Cyclobenzaprine 10 mg tablet Discontinued 10 MG PO Three times daily as needed for back spasms 50 September 04, 2019 1:00am February 01, 2022 6:04am dicyclomine hydrochloride 20 mg oral tablet (8 sources) Anticholinergic Start: 08-22-2019 End: 02-01-2022 take 1 tablet by mouth twice daily Dicyclomine 20 mg Tablet Discontinued 20 MG PO Twice daily August 22, 2019 1:00am February 01, 2022 6:04am empagliflozin 25 mg oral tablet (9 sources) Sodium-Glucose Cotransporter 2 Inhibitor Start: 12-25-2022 End: 10-15-2024 take 1 tablet by mouth once daily Empagliflozin (Jardiance) 25 mg tablet Discontinued 25 MG PO Daily November 03, 2023 12:00am October 15, 2024 3:22pm take 1 tablet by vargas th every twenty-four hours Jardiance 10 MG 1 tablet Orally Once a day Active glipiZIDE 10 mg oral tablet (14 sources) Sulfonylurea Start: 08-22-2019 End: 10-15-2024 take 1 tablet by mouth twice daily Glipizide 10 mg Tablet Discontinued 10 MG PO Twice daily August 22, 2019 1:00am October 15, 2024 3:22pm methylPREDNISolone 4 mg oral tablet (4 sources) Corticosteroid methylPREDNISolo ne 4 MG TAKE 6 TABLETS ON DAY 1 DIRECTED ON PACKAGE AND DECREASE BY 1 TAB EACH DAY FOR A TOTAL OF 6 DAYS for 6 Not-Taking oxyCODONE hydrochloride 5 mg oral capsule (5 sources) Opioid Agonist Start: 09-04-2019 End: 02-01-2022 take 5-10 mg by mouth every six hours as needed for pain Oxycodone 5 mg capsule Discontinued 5 - 10 MG PO Q6H as needed for pain 60 8 September 04, 2019 February 01, 2022 6:04am predniSONE 10 mg oral tablet (5 sources) Start: 09-04-2019 End: 02-01-2022 Prednisone 10 mg tablets,dose pack Discontinued 1 dose pk PO per package [...] 3 days sucralfate 1000 mg oral tablet (10 sources) Aluminum Complex Start: 02-01-2022 End: 11-03-2023 take 1 tablet by mouth three times daily Sucralfate 1 gram tablet Discontinued 1 GM PO Three times daily [...] Resolved: 01-24-2022 Chronic Diabetes mellitus without complication (2 sources) Type 2 diabetes mellitus without complications; Translations: [Diabetes mellitus without mention of complication, type II or unspecified type, not stated as uncontrolled] 11-03-2023 Chronic Esophageal disorders (20 sources) Gastro-esophageal reflux disease with esophagitis; Translations: [Gastro-esophageal reflux disease with esophagitis] Onset: 01-24-2022 Resolved: 01-24-2022 Chronic Comment on above: Problem List clean-u p per request of Phys. EHR Cmte Essential hypertension (2 sources) Essential hypertension; Translations: [Essential (primary) hypertension] 10-15-2024 Chronic Hepatitis (12 sources) Nonalcoholic steatohepatitis; Translations: [...] sources) Dysphagia; Translations: [Dysphagia, unspecified] 02-01-2022 Episodic Comment on above: Problem List clean-u p per request of Phys. EHR Cmte Other liver diseases (12 sources) Elevated liver enzymes level; Translations: [Abnormal levels of other serum enzymes] Episodic Other nervous system disorders (11 sources) Chronic pain; Translations: [Other chronic pain] Chronic Other nervous system disorders (1 source) Other chronic pain; Translations: [Other chronic pain G89.29] Onset: 05-27-2021 Resolved: 05-27-2021 Chronic Other nervous system disorders (2 sources) Carpal tunnel syndrome of right wrist; Translations: [Carpal tunnel syndrome, right upper limb] Onset: 04-01-2024 04-01-2024 Chronic Other non-traumatic joint disorders (11 sources) Hip pain; Translations: [Pain in unspecified hip] Episodic Other nutritional; endocrine; and metabolic disorders (20 sources) Body mass index 40+ - severely obese; Translations: [Body mass index (BMI) 40.0-44.9, adult] Chronic Other nutritional; endocrine; and metabolic disorders (1 source) Obesity caused by energy imbalance; Translations: [Other obesity due to excess calories] 04-03-2024 Chronic Other screening for suspected conditions (not mental disorders or infectious disease) (6 sources) Encounter for screening for malignant neoplasm of cervix; Translations: [Patient encounter status] Onset: 11-28-2022 Episodic Other upper respiratory infections (1 source) Acute maxillary sinusitis, unspecified Episodic Residual codes; unclassified (5 sources) Obstructive sleep apnea syndrome; Translations: [Obstructive sleep apnea (adult) (pediatric)] 11-03-2023 Chronic Residual codes; unclassified (4 sources) Sleep apnea; Translations: [Sleep apnea, unspecified] 11-03-2023 Chronic Comment on above: Problem List clean-u p per request of Phys. EHR Cmte Residual codes; unclassified (1 source) Obstructive sleep apnea (adult) (pediatric); Translations: [Obstructive sleep apnea (adult)(pediatric)] 11-03-2023 Chronic Residual codes; unclassified (1 source) Sleep apnea, unspecified; Translations: [Obstructive sleep apnea (adult)(pediatric)] 11-03-2023 Chronic Residual codes; unclassified (1 source) Hypersomnia; Translations: [Hypersomnia, unspecified] 04-03-2024 Chronic Spondylosis; intervertebral disc disorders; other back problems (13 sources) Inflammation of sacroiliac joint; Translations: [Sacroiliitis, not elsewhere classified] Onset: 05-13-2021 Resolved: 05-13-2021 Chronic Spondylosis; intervertebral disc disorders; other back problems (20 sources) Spinal stenosis of lumbar region; Translations: [Spinal stenosis, lumbar region with neurogenic claudication] Onset: 05-13-2021 Resolved: 05-13-2021 Episodic Comment on above: Problem List clean-u p per request of Phys. EHR Cmte Unclassified (1 source) R13.10 - Dysphagia, unspecified; [...] abdomen Onset: 01-24-2022 Resolved: 01-24-2022 Episodic Other lower respiratory disease (1 source) Hypoxia; Translations: [Hypoxemia] 04-03-2024 Episodic Other lower respiratory disease (1 source) Snoring; Translations: [Snoring] 04-03-2024 Episodic Other non-traumatic joint disorders (1 source) Pain in unspecified hip; Translations: [Hip pain M25.559] Onset: 05-27-2021 Resolved: 05-27-2021 Episodic Unclassified (1 source) Low back pain, unspecified M54.50; Translations: [Low back pain, unspecified M54.50] Onset: 05-27-2021 Resolved: 05-27-2021 Results Test Name Value Interpretation Reference Range Facility PAP ACOG PANEL 2: 30 to 65on 12-05-2022 . . Normal [facility] Comment on above: Result Comment: Perf ormed at: WB Performed By: #### [id number] #### [facility] [address] [address] [address] Axel Zamora Age Gdln ACOG Testing - Normal [facility] Comment on above: Performed By: #### [id number] #### [facility] [address] [address] [address] Axel Zamora DIAGNOSIS: Comment Normal [facility] Comment on above: Result Comment: UNSA TISFACTORY FOR EVALUATION. Performed at: WB Performed By: #### [id number] #### [facility] [address] [address] [address] Axel Zamora HPV Aptima Negative Normal Negative [facility] Comment on above: Result Comment: This nucleic acid amplification test detects fourteen high-risk HPV types (16,18,31,33,35,39,45,51,52,56,58,59,66,68) without differentiation. Performed at: =G Performed By: #### [id number] #### [facility] [address] [address] [address] Axel Zamora HPV Genotype Reflex Comment Normal [facility] Comment on above: Result Comment: Crit eria not met, HPV Genotype not performed. Performed at: WB Performed By: #### [id number] #### [facility] [address] [place] [address] Dr. Axel Zamora Methodology: Comment [facility] Comment on above: Result Comment: This liquid based ThinPrep(R) pap test was screened with the use of an image guided system. Performed at: WB Performed By: #### [id number] #### [facility] [address] [place] [address] Dr. Axel Zamora Note: Comment Normal [facility] Comment on above: Result Comment: The Pap smear is a screening test designed to aid in the detection of premalignant and malignant conditions of the uterine cervix. It is not a diagnostic procedure and should not be used as the sole means of detecting cervical cancer. Both false-positive and false-negative reports do occur. . Performed at: WB Performed By: #### [id number] #### [facility] [address] [place] [address] Dr. Axel Zamora Performed by: Comment Normal [facility] Comment on above: Result Comment: Margaret Bryant, Engineering Faculty Member (ASCP) Performed at: WB Performed By: #### [id number] #### [facility] [address] [place] [address] Dr. Axel Zamora QC reviewed by: Comment Normal [facility] Comment on above: Result Comment: Teri Barahona, Supervisory Engineering Faculty Member (ASCP) Performed at: WB Performed By: #### [id number] #### [facility] [address] [place] [address] Dr. Axel Zamora Recommendation: Comment Normal [facility] Comment on above: Result Comment: Sugg est follow up as clinically appropriate. Performed at: WB Performed By: #### [id number] #### [facility] [address] [place] [address] Dr. Axel Zamora Specimen adequacy: Comment Normal [facility] Comment on above: Result Comment: Spec imen processed and examined but unsatisfactory for evaluation of epithelial abnormality because of insufficient cellularity. Performed at: WB Performed By: #### [id number] #### [facility] [address] [place] [address] Dr. Axel Zamora GLYCOHEMOGLOBIN A1Con 2022 ADA RECOMMENDATION SEE BELOW Normal [facility] Comment on above: Result Comment: ADA RECOMMENDED LIMIT 4.0 - 6.0 ADA THERAPEUTIC TARGET < 7.0 ACTION SUGGESTED > 7.0 Performed By: #### D ATA1C #### [facility] [address] [address] [address] Axel Zamora Glucose [Mass/Vol] 126 mg/dL Normal [facility] Comment on above: Performed By: #### D ATA1C #### [facility] [address] [place] [address] Dr. Axel Zamora HbA1c (Bld) [Mass fraction] 6.0 % Normal 4.5-6.2 [facility] Comment on above: Performed By: #### D ATA1C #### [facility] [address] [place] [address] Dr. Axel Zamora CHLAMYDIA/GONOCOCCUS BHARATH ( AB/URINE/PAPon 09-22-2022 Chlamydia trachomatis, BHARATH Negative Normal Negative [facility] Comment on above: Performed By: #### C T/NGNA #### [facility] [address] [place] [address] Dr. Axel Zamora Neisseria gonorrhoeae, BHARATH Negative Normal Negative [facility] Comment on above: Performed By: #### C T/NGNA #### [facility] [address] [place] [address] Dr. Axel Zamora VAGINITIS/VAGINOSIS DNA PROB Gt 09-21-2022 Corinne species Negative Normal Negative [facility] Comment on above: Performed By: #### V AGINT #### [facility] [address] [place] [address] Dr. Axel Zamora Gardnerella vaginalis Negative Normal Negative [facility] Comment on above: Performed By: #### V AGINT #### [facility] [address] [place] [address] Dr. Axel Zamora Trichomonas vaginalis Negative Normal Negative [facility] Comment on above: Performed By: #### V AGINT #### [facility] [address] [place] [address] Dr. Axel Zamora Superficial Wound Cultureon 09-06-2022 Superficial Wound Culture RIGHT LATERAL DISTAL UPPER ARM No Growth 2 Days PERFORMED BY: [facility] [address] [place] [address] PATHOLOGIST KITCHEN MECHANIC LATISHA FRANCO M.D. Normal [facility] Comment on above: Performed By: #### C USUP #### [facility] [address] CBC AUTO DIFFon 03-22-2022 BASO # 0.1 103/ul Normal 0.0-0.1 [facility] Comment on above: Performed By: #### C BC #### [facility] [address] [place] [address] Dr. Axel Zamora Basophils/100 WBC (Bld) 0.7 % Normal 0.2-2.0 [facility] Comment on above: Performed By: #### C BC #### [facility] [address] [place] [address] Dr. Axel Zamora EO # 0.3 103/ul Normal 0.0-0.7 [facility] Comment on above: Performed By: #### C BC #### [facility] [address] [place] [address] Dr. Axel Zamora Eosinophils/100 WBC (Bld) 3.7 % Normal 0.9-7.0 [facility] Comment on above: Performed By: #### C BC #### [facility] [address] [place] [address] Dr. Axel Zamora Erythrocyte distribution width (RBC) [Ratio] 12.6 % Normal 11.0-15.0 [facility] Comment on above: Performed By: #### C BC #### [facility] [address] [place] [address] Dr. Axel Zamora Hematocrit (Bld) [Volume fraction] 40.0 % Normal 36.0-48.0 [facility] Comment on above: Performed By: #### C BC #### [facility] [address] [place] [address] Dr. Axel Zamora Hemoglobin (Bld) [Mass/Vol] 13.4 g/dL Normal 12.0-16.0 [facility] Comment on above: Performed By: #### C BC #### [facility] [address] [place] [address] Dr. Axel Zamora IG # 0.04 10e3/ul Critically high 0.00-0.03 [facility] Comment on above: Performed By: #### C BC #### [facility] [address] [place] [address] Dr. Axel Zamora IG % 0.6 % Critically high 0.0-0.5 [facility] Comment on above: Performed By: #### C BC #### [facility] [address] [place] [address] Dr. Axel Zamora LYMPH # 2.2 103/ul Normal 1.2-3.8 [facility] Comment on above: Performed By: #### C BC #### [facility] [address] [place] [address] Dr. Axel Zamora Lymphocytes/100 WBC (Bld) 32.1 % Normal 20.5-60.0 [facility] Comment on above: Performed By: #### C BC #### [facility] [address] [place] [address] Dr. Axel Zamora MANUAL DIFF REQ NO Normal [facility] Comment on above: Performed By: #### C BC #### [facility] [address] [place] [address] Dr. Axel Zamora MCH (RBC) [Entitic mass] 31.9 pg Normal 26.7-34.0 [facility] Comment on above: Performed By: #### C BC #### [facility] [address] [place] [address] Dr. Axel Zamora MCHC (RBC) [Mass/Vol] 33.5 g/dL Normal 29.9-35.2 [facility] Comment on above: Performed By: #### C BC #### [facility] [address] [place] [address] Dr. Axel Zamora MCV (RBC) [Entitic vol] 95.2 fL Normal 81.0-99.0 [facility] Comment on above: Performed By: #### C BC #### [facility] [address] [place] [address] Dr. Axel Zamora MONO # 0.6 103/ul Normal 0.3-0.8 [facility] Comment on above: Performed By: #### C BC #### [facility] [address] [place] [address] Dr. Axel Zamora Monocytes/100 WBC (Bld) 8.6 % Normal 1.7-12.0 [facility] Comment on above: Performed By: #### C BC #### [facility] [address] [place] [address] Dr. Axel Zamora NEUT # 3.8 103/ul Normal 1.4-6.5 [facility] Comment on above: Performed By: #### C BC #### [facility] [address] [place] [address] Dr. Axel Zamora Neutrophils/100 WBC (Bld) 54.3 % Normal 43.0-75.0 [facility] Comment on above: Performed By: #### C BC #### [facility] [address] [place] [address] Dr. Axel Zamora Platelet mean volume (Bld) [Entitic vol] 9.3 fL Critically low 9.5-13.5 [facility] Comment on above: Performed By: #### C BC #### [facility] [address] [place] [address] Dr. Axel Zamora PLT 246 103/ul Normal 150-450 [facility] Comment on above: Performed By: #### C BC #### [facility] [address] [place] [address] Dr. Axel Zamora RBC 4.20 106/ul Normal 4.20-5.40 [facility] Comment on above: Performed By: #### C BC #### [facility] [address] [place] [address] Dr. Axel Zamora WBC 7.0 103/ul Normal 4.0-11.0 [facility] Comment on above: Performed By: #### C BC #### [facility] [address] [place] [address] Dr. Axel Zamora CULTURE URINEon 03-22-2022 CULTURE URINE Culture Observations : LIGHT GROWTH OF MIXED GENITAL KUNAL. NO POTENTIAL PATHOGENS SEEN. Normal [facility] Comment on above: Performed By: #### U RCX #### [facility] [address] [place] [address] Dr. Axel Zamora FREE T4on 03-22-2022 Free T4 [Mass/Vol] 0.82 ng/dL Normal 0.76-1.46 [facility] Comment on above: Performed By: #### F T4 #### [facility] [address] [place] [address] Dr. Axel Zamora GLYCOHEMOGLOBIN A1Con 2021 ADA RECOMMENDATION SEE BELOW Normal [facility] Comment on above: Result Comment: ADA RECOMMENDED LIMIT 4.0 - 6.0 ADA THERAPEUTIC TARGET < 7.0 ACTION SUGGESTED > 7.0 Performed By: #### A 1C #### [facility] [address] [place] [address] Dr. Axel Zamora Glucose [Mass/Vol] 128 mg/dL Normal [facility] Comment on above: Performed By: #### A 1C #### [facility] [address] [place] [address] Dr. Axel Zamora HbA1c (Bld) [Mass fraction] 6.1 % Normal 4.5-6.2 [facility] Comment on above: Performed By: #### A 1C #### [facility] [address] [place] [address] Dr. Axel Zamora PROF CHEM 8 (BAS METB)on Anion gap [Moles/Vol] 14.0 mmol/L Normal [facility] Comment on above: Performed By: #### T SH, BMP #### [facility] [address] [place] [address] Dr. Axel Zamora Calcium [Mass/Vol] 9.0 mg/dL Normal 8.5-10.1 [facility] Comment on above: Performed By: #### T SH, BMP #### [facility] [address] [address] [address] Axel Zamora Chloride [Moles/Vol] 103 mmol/L Normal 98-107 [facility] Comment on above: Performed By: #### T SH, BMP #### [facility] [address] [address] [address] Axel Zamora CO2 [Moles/Vol] 24.8 mmol/L Normal 21.0-32.0 [facility] Comment on above: Performed By: #### T SH, BMP #### [facility] [address] [address] [address] Axel Zamora Creatinine [Mass/Vol] 0.74 mg/dL Normal 0.55-1.02 [facility] Comment on above: Performed By: #### T SH, BMP #### [facility] [address] [place] [address] Dr. Axel Zamora EGFR-AF HONG KONGER >60 Normal >=60 [facility] Comment on above: Performed By: #### T SH, BMP #### [facility] [address] [place] [address] Dr. Axel Zamora EGFR-NON AF [place]ONG [place]ER >60 Normal >=60 [facility] Comment on above: Performed By: #### T SH, BMP #### [facility] [address] [place] [address] Dr. Axle Zamora Glucose [Mass/Vol] 125 mg/dL Critically high 74-106 [facility] Comment on above: Performed By: #### T SH, BMP #### [facility] [address] [place] [address] Dr. Axel Zamora Potassium [Moles/Vol] 3.8 mmol/L Normal 3.5-5.1 [facility] Comment on above: Performed By: #### T SH, BMP #### [facility] [address] [place] [address] Dr. Axel Zamora Sodium [Moles/Vol] 138 mmol/L Normal 136-145 [facility] Comment on above: Performed By: #### T SH, BMP #### [facility] [address] [place] [address] Dr. Axel Zamora Urea nitrogen [Mass/Vol] 14.0 mg/dL Normal 7.0-18.0 [facility] Comment on above: Performed By: #### T SH, BMP #### [facility] [address] [place] [address] Dr. Axel Zamora Urea nitrogen/Creatinine [Mass ratio] 18.9 mg/mg Normal [facility] Comment on above: Performed By: #### T SH, BMP #### [facility] [address] [place] [address] Dr. Axel Zamora TSHon 03-22-2022 TSH 3.074 uIU/mL Normal 0.358-3.740 [facility] Comment on above: Performed By: #### T EDSON, BMP #### [facility] [address] [place] [address] Dr. Axel Zamora UA RANDOM W/MICROSCOPICon BACTERIA TRACE Abnormal NONE SEEN [facility] Comment on above: Performed By: #### T SH, BMP #### [facility] [address] [place] [address] Dr. Axel Zamora Bilirubin Ql (U) Negative Normal NEGATIVE [facility] Comment on above: Performed By: #### T SH, BMP #### [facility] [address] [place] [address] Dr. Axel Zamora CAST NONE SEEN Normal NONE SEEN [facility] Comment on above: Performed By: #### T SH, BMP #### [facility] [address] [place] [address] Dr. Axel Zamora Clarity (U) CLEAR Normal CLEAR [facility] Comment on above: Performed By: #### T SH, BMP #### [facility] [address] [place] [address] Dr. Axel Zamora Color (U) LT. YELLOW Normal YELLOW [facility] Comment on above: Performed By: #### T SH, BMP #### [facility] [address] [place] [address] Dr. Axel Zamora Crystals LM Nom (Urine sed) NONE SEEN Normal NONE SEEN [facility] Comment on above: Performed By: #### T SH, BMP #### [facility] [address] [address] [address] Axel Zamora Epithelial cells LM Ql (Urine sed) RARE Normal NONE SEEN /RARE [facility] Comment on above: Performed By: #### T SH, BMP #### [facility] [address] [place] [address] Dr. Axel Zamora Glucose Ql (U) Negative Normal NEGATIVE The [facility] Comment on above: Performed By: #### T SH, BMP #### [facility] [address] [address] [address] Axel Zamora Hemoglobin Ql (U) Negative Normal NEGATIVE The [facility] Comment on above: Performed By: #### T SH, BMP #### [facility] [address] [place] [address] Dr. Axel Zamora Ketones Ql (U) Negative Normal NEGATIVE The [facility] Comment on above: Performed By: #### T SH, BMP #### [facility] [address] [place] [address] Dr. Axel Zamora LEUKOCYTES Negative Normal NEGATIVE [facility] Comment on above: Performed By: #### T SH, BMP #### [facility] [address] [place] [address] Dr. Axel Zamora MUCOUS TRACE Abnormal NONE SEEN [facility] Comment on above: Performed By: #### T SH, BMP #### [facility] [address] [place] [address] Dr. Axel Zamora Nitrite Ql (U) Negative Normal NEGATIVE The [facility] Comment on above: Performed By: #### T SH, BMP #### [facility] [address] [place] [address] Dr. Axel Zamora pH (U) 6.0 [pH] Normal 5-9 [facility] Comment on above: Performed By: #### T SH, BMP #### [facility] [address] [place] [address] Dr. Axel Zamora RBC 0-2 Normal 0-2 [facility] Comment on above: Performed By: #### T SH, BMP #### [facility] [address] [address] [address] Axel Zamora SPEC GRAVITY 1.020 Normal 1.005-<=1.025 The [facility] Comment on above: Performed By: #### T EDSON, BMP #### [facility] [address] [address] [address] Axel Zamora UA PROTEIN Negative Normal NEGATIVE/ TRACE [facility] Comment on above: Performed By: #### T EDSON, BMP #### [facility] [address] [address] [address] Axel Zamora Urobilinogen Qn (U) 0.2 {Kuldip'U}/dL Normal 0.2 - 1. 0 [facility] Comment on above: Performed By: #### T EDSON, BMP #### [facility] [address] [address] [address] Axel Zamora WBC NONE SEEN Normal NONE SEEN [facility] Comment on above: Performed By: #### T DESON, BMP #### [facility] [address] [address] [address] Axel Zamora Glucose Poct Glucometerson 0 02-01-2022 Commemt1 Glu2: Cleaned Meter Normal [facility] Comment on above: Result Comment: PERF ORMED BY: [facility] [address] [place] [address] PATHOLOGIST [employer] LATISHA FRANCO M.D. Performed By: #### G LULS #### Point of Care testing , Glucose [Mass/Vol] 103 mg/dL Normal [facility] Comment on above: Result Comment: [facility] Glucose Reference Range is dependent [...] PCR TESTING. MOLECULARBIOLOGIST CHANGED TEST PLATFORM TO [employer] 01/28/22 0700 [facility] Worker?: N COVID-19 [...] or Cepheid Disclaimer revoked sooner. PERFORMED BY: [facility] [place] [address] PATHOLOGIST [employer]CH[employer] LATISHA FRANCO M.D. Normal [facility] Comment on above: Performed By: #### C OVID19 FLU RSV, CEPHEID NEG #### [facility] [address] Cepheid COVID PCR Negativeon 01-27-2022 SARS-CoV-2 (COVID-19) RNA BHARATH+probe Ql (Unsp spec) Negative Normal Negative [facility] Comment on above: Result Comment: This is a duplicate Cepheid Xpert Xpress CoV-2/Flu/RSV Plus RNA by RT-PCR result to be used for statistical tracking purpose only. PERFORMED BY: [place] [address] PATHOLOGIST [employer] MECHANIC LATISHA FRANCO M.D. Performed By: #### C OVID19 FLU RSV, CEPHEID NEG #### [facility] [address] Vital Signs Date Time Vital Sign Value Performing Clinician Facility 10-15-2024 15:15-0400 Body height 156.21 cm [facility] 10-15-2024 15:15-0400 Body mass index (BMI) [Ratio] 41.1 kg/m2 [facility] 10-15-2024 15:15-0400 Body weight 100.24 kg [facility] 10-15-2024 15:15-0400 Diastolic blood pressure 83 mm[Hg] [facility] 10-15-2024 15:15-0400 Heart rate 99 /min [facility] 10-15-2024 15:15-0400 Systolic blood pressure 129 mm[Hg] [facility] 04-03-2024 11:04-0400 Body height 157.5 cm Konstantin Amy DO Work Phone: [facility] 04-03-2024 11:04040 Body mass index (BMI) [Ratio] 42.98 kg/m2 Konstantin Amy DO Work Phone: [facility] 04-03-2024 11:040 Body weight 106.59 kg Konstantin Amy DO Work Phone: [facility] 04-03-2024 11:04-0400 Diastolic blood pressure 88 mm[Hg] Konstantin Amy DO Work Phone: [facility] 04-03-2024 11:04-0400 Heart rate 113 /min Konstantin Amy DO Work Phone: [facility] 04-03-2024 11:04-0400 SaO2% (BldA) [Mass fraction] 93 % Konstantin Amy DO Work Phone: [facility] 04-03-2024 11:04-0400 Systolic blood pressure 132 mm[Hg] Konstantin Amy DO Work Phone: [facility] 02-27-2024 09:05-0400 Body weight 106.14 kg MD Denise Hutton Work Phone: [facility] 11-03-2023 14:33-0400 Body height 156.21 cm [facility] 11-03-2023 14:33-0400 Body mass index (BMI) [Ratio] 43.3 kg/m2 [facility] 11-03-2023 14:33-0400 Body weight 105.8 kg [facility] 11-03-2023 14:33-0400 Diastolic blood pressure 86 mm[Hg] [facility] 11-03-2023 14:33-0400 Heart rate 112 /min [facility] 11-03-2023 14:33-0400 Systolic blood pressure 126 mm[Hg] [facility] 12-20-2022 14:30-0400 Body height 156.21 cm Denise Hutton Other [facility] [employer] Other 12-20-2022 14:30-0400 Body mass index (BMI) [Ratio] 43.49 kg/m2 Denise Hutton Other [employer] Other 12-20-2022 14:30-0400 Body temperature 98 [degF] Denise Hutton Other [employer] Other 12-20-2022 14:30-0400 Body weight 106.14 kg Denise Hutton Other [employer] Other 12-20-2022 14:30-0400 Diastolic blood pressure 80 mm[Hg] Denise Hutton Other [employer] Other 12-20-2022 14:30-0400 Systolic blood pressure 130 mm[Hg] Denise Hutton Other [employer] Other 09-19-2022 13:45-0500 Body height 156.21 cm Denise Hutton Other [employer] Other 09-19-2022 13:45-0500 Body mass index (BMI) [Ratio] 42.75 kg/m2 Denise Hutton Other [employer] Other 09-19-2022 13:45-0500 Body weight 104.33 kg Denise Hutton Other [employer] Other 09-19-2022 13:45-0500 Diastolic blood pressure 72 mm[Hg] Denise Hutton Other [employer] Other 09-19-2022 13:45-0500 SaO2% (BldA) [Mass fraction] 97 % Denise Hutton Other [employer] Other 09-19-2022 13:45-0500 Systolic blood pressure 126 mm[Hg] Denise Hutton Other [employer] Other 08-15-2022 11:45-0500 Body height 156.21 cm Denise Hutton Other [employer] Other 08-15-2022 11:45-0500 Body mass index (BMI) [Ratio] 43.68 kg/m2 Denise Hutton Other [employer] Other 08-15-2022 11:45-0500 Body weight 106.6 kg Denise Hutton Other [employer] Other 08-15-2022 11:45-0500 Diastolic blood pressure 80 mm[Hg] Denise Hutton Other [employer] Other 08-15-2022 11:45-0500 SaO2% (BldA) [Mass fraction] 99 % Denise Hutton Other [employer] Other 08-15-2022 11:45-0500 Systolic blood pressure 128 mm[Hg] Denise Hutton Other [employer] Other 01-24-2022 10:45-0400 Body height 157.48 cm Stan Donniejason Other [employer] Other 01-24-2022 10:45-0400 Body mass index (BMI) [Ratio] 42.98 kg/m2 Stan Marisa Other [employer] Other 01-24-2022 10:45-0400 Body weight 106.6 kg Stan Cunningham Other [employer] Other 05-13-2021 14:40-0400 Body height 157.48 cm John Hutton Other [employer] Other 05-13-2021 14:40-0400 Body mass index (BMI) [Ratio] 45.9 kg/m2 John Hutton Other [employer] Other 05-13-2021 14:40-0400 Body weight 113.85 kg John Hutton Other [employer] Other Encounters Encounter Date Encounter Type Care Provider Facility Start: 10-15-2024 End: 10-15-2024 ambulatory [facility] Work Phone: Start: 10-15-2024 End: 10-15-2024 Patient encounter procedure [facility] Work Phone: Start: 04-08-2024 End: 04-08-2024 ambulatory Doris Green MD Facility: [facility] Start: 04-03-2024 End: 04-03-2024 Bamboo flowsheet Konstantin Gaytan DO Work Phone: [employer] [facility] Start: 04-03-2024 End: 04-03-2024 Bamboo flowsheet Konstantin Amy DO Work Phone: [employer] [facility] Start: 04-03-2024 End: 04-03-2024 Office consultation new/estab patient 60 min Konstantin Gaytan DO Work Phone: [employer] [facility] Comment on above: YAW (obstructive sle ep apnea); Hypersomnia; Hypoxia; Snoring; Obesity due to excess calories, unspecified classification, unspecified whether serious comorbidity present Start: 04-03-2024 End: 04-03-2024 ambulatory KONSTANTIN GAYTAN Not Available Start: 03-18-2024 End: 03-18-2024 ambulatory Drois Green MD Facility: [facility] Start: 02-27-2024 End: 02-27-2024 ambulatory MD Denise Hutton Work Phone: [facility] Work Phone: Start: 02-27-2024 End: 02-27-2024 Patient encounter procedure MD Denise Hutton Work Phone: [facility] Neurosurgery Work Phone: Start: 02-22-2024 End: 02-22-2024 ambulatory MD Denise Hutton Work Phone: [facility] Work Phone: Start: 02-22-2024 End: 02-22-2024 Patient encounter procedure MD Denise Hutton Work Phone: [facility] Work Phone: Start: 11-03-2023 Patient encounter status [facility] Start: 11-03-2023 End: 11-03-2023 ambulatory [facility] Work Phone: Start: 11-03-2023 End: 11-03-2023 Encounter for general adult medical examination without abnormal findings [facility] Start: 11-03-2023 End: 11-03-2023 Patient encounter procedure [facility] Work Phone: Start: 10-04-2023 Non-patient / Non-visit [facility] Work Phone: Start: 01-20-2023 End: 01-20-2023 ambulatory Denise Hutton Other [employer] Other Start: 01-20-2023 Telephone encounter Denise Hutton [facility] Start: 01-18-2023 End: 01-18-2023 ambulatory Denise Hutton Other [employer] Other Start: 01-18-2023 Telephone encounter Denise Hutton [facility] Start: 12-20-2022 End: 12-20-2022 ambulatory Denise Hutton Other [employer] Other Start: 12-20-2022 Office outpatient visit 15 minutes Denise Hutton [facility] Start: 11-28-2022 End: 11-28-[address] NATALIE PRAJAPATI . Facility:[facility] Start: 09-26-2022 End: 09-27-2022 ambulatory NONE LISTED REQUEST Facility:[facility] Start: 09-19-2022 End: 09-19-2022 ambulatory KIKO RIVERA . [employer] Other Start: 02-20-2023 Office outpatient visit 15 minutes Denise Hutton [facility] Start: 09-06-2022 End: 09-06-2022 ambulatory Denise Hutton Facility:[facility] Start: 09-06-2022 End: 09-06-2022 ambulatory MD Denise Hutton Work Phone: [facility] Work Phone: Start: 09-06-2022 End: 09-06-2022 Departed Referred MD Denise Hutton Work Phone: [facility] [place] Work Phone: Start: 08-17-2022 End: 08-17-2022 ambulatory Denise Hutton Other [employer] Other Start: 08-17-2022 Telephone encounter Denise Hutton [facility] Start: 08-15-2022 End: 08-15-2022 ambulatory Denise Hutton Other [employer] Other Start: 08-15-2022 Office outpatient visit 15 minutes Denise Hutton [facility] Start: 08-11-2022 End: 08-11-2022 ambulatory Denise Hutton Other [employer] Other Start: 08-11-2022 Telephone encounter Denise Hutton [facility] Start: 05-10-[address] DENISE HUTTON Facil ity:[facility] Start: 03-22-2022 End: 03-23-2022 ambulatory SHAIKH Chad SALTER Facility:[facility] Start: 02-01-2022 End: 02-01-2022 ambulatory Denise Hutton Facility:[facility] Start: 01-27-2022 End: 01-27-2022 ambulatory Denise Hutton Facility:[facility] Start: 01-24-2022 End: 01-24-2022 ambulatory Stan Cunningham Other [employer] Other Start: 01-24-2022 Office outpatient ne w 45 minutes Stan Cunningham [facility] Gastroenterology Start: 08-19-2021 End: 08-19-2021 ambulatory John Hutton Other [facility] [employer] Other Start: 08-19-2021 Telephone encounter John Anni [employer] [employer] Start: 06-01-2021 End: 06-01-2021 ambulatory Luke Barraganbeto Other [facility] [employer] Other Start: 06-01-2021 Telephone encounter Luke JUAN [facility] [employer] Start: 05-27-2021 Office consultation new/estab patient 60 min Luke Johnson [facility] [place] Start: 05-13-2021 Office outpatient visit 25 minutes John Hutton [facility] Neurosurgery Procedures Date Procedure Procedure Detail Performing Clinician Start: 02-22-2024 X-ray of lumbar spin e, six views including bending views MD Denise Hutton Work Phone: Plan of Treatment Date Care Activity Detail Author Start: 04-03-2024 End: 04-03-2024 Patient encounter procedure 04/03/2024 11:00 AM EDT Office Visit [facility] [address] [place] [id number] Konstantin Gaytan, DO [address] [place] [address] [facility] Comment on above: Arrived Start: 02-27-2024 Patient referral [facility] Work Phone: Start: 09-06-2022 Superficial Wound Culture Supe rficial Wound Culture [facility] Bacteria identified in Unspecified specimen by Aerobe culture [facility] Comprehensive metabo lic 1999 panel - Serum or Plasma [facility] Comprehensive metabo lic 1999 panel - Serum or Plasma [facility] MG Breast - bilatera l Screening [facility] Microalbumin [Mass/volume] in Urine [facility] Patient referral [facility] Work Phone: [facility] Immunizations Immunization Date Immunization Notes Care Provider Fa cility 11-30-2020 COVID-19 Juliano Matthews (Pfizer) MD Denise Hutton Work Phone: [facility] 11-09-2020 COVID-19 Juliano Matthews (Pfizer) MD Denise Hutton Work Phone: [facility] Payers Date Payer Category Payer Private Health Insurance 2022 Self-pay [id number] 1970 Unknown [id number] 1970 Unknown [id number] 1970 Unknown [id number] 1970 Unknown [id number] 1970 Unknown [id number] 1970 Unknown [id number] 1970 Unknown [id number] 1959 Private Health Insurance [id number] 1959 Private Health Insurance [id number] Self-pay [id number] Unknown Ham[employer] BC/BS [id number] Unknown [id number] Unknown [id number] Unknown [id number] Unknown [id number] Social History Date Type Detail Facility Unknown if ever smoked [facility] [employer] Other Start: 04-03-2024 Sex Assigned At N [facility] [employer] Other Start: 02-01-2022 End: 02-01-2022 Tobacco smoking status NHIS Never smoked tobacco (finding) [facility] Start: 1970 Sex Assigned At Female [facility] Start: 04-03-2024 Tobacco use and exposure Smokeless tobacco non-user [facility] Start: 04-03-2024 History of Social function [facility] Start: 12-27-2022 Gender identity Identifies as female gender (finding) [facility] Tobacco smoking status AZIS Tobacco smoking consumption unknown [facility] [facility] Start: 10-15-2024 Sex Female (finding) [facility] Medical Equipment Procedure Code Equipment Code Equipment Origin al Text Equipment Identifier Dates Fusion, spine, lumbar, XLIF STRATOFUSE DBM 10CC FDA Start: 09-02-2019 Fusion, spine, lumbar, XLIF Bone-screw internal spinal fixation system, non-sterile ()[id number] FDA Start: 09-02-2019 Fusion, spine, lumbar, XLIF Bone-screw internal spinal fixation system, non-sterile ()[id number] FDA Start: 09-02-2019 Fusion, spine, lumbar, XLIF Bone-screw internal spinal fixation system, non-sterile ()[id number] FDA Start: 09-02-2019 Fusion, spine, lumbar, XLIF XLIF 1 LEVEL MAS REDUCTION FDA Start: 09-02-2019 Fusion, spine, lumbar, XLIF Spinal fusion graft kit ()[id number] 82) 1AAA FDA Start: 09-02-2019 Fusion, spine, lumbar, XLIF Metallic spinal fusion cage, non-sterile ()[id number] FDA Start: 09-02-2019 Fusion, spine, lumbar, XLIF Bone-screw internal spinal fixation system, non-sterile ()[id number] FDA Start: 09-02-2019 Fusion, spine, lumbar, XLIF Bone-screw internal spinal fixation system, non-sterile ()[id number] FDA Start: 09-02-2019 Fusion, spine, lumbar, XLIF [...] 1 LEVEL MAS REDUCTION FDA Start: 09-02-2019 Blood Sugar Diagnostic (Accu-Chek Rossi Plus Test Strp) strip Start: 04-04-2024 Blood Sugar Diagnostic (Accu-Chek Rossi Plus Test Strp) strip Start: 04-04-2024 End: 04-04-2024 Clinical Notes 05-13-2021 to 04-03-2024 Konstantin Gaytan DO - 04/03/2024 11:00 AM EDT Note Date & Type Note Facility 04-03-2024 History of Presen t illness Narrative Images from the original note were not included. Chief Complaint Patient presents with Sleep Apnea Subjective Mai Barfield Daniel, 53 y.o., female being seen in Neurology consultation at the request of Dr. Hutton. HPI Sleep ND The patient was previously diagnosed with YAW about 14 years ago. She was exhausted and snored a lot. She would fall asleep when she should not have. She got her original machine and improved. This is her 3rd machine. It was malfunctioning and not working correctly. The patient states that she is sleeping about 7 hours a night. She is waking up about 2-3 times a night due to her back. She states that the new machine is working much better. She is ok on supplies. She is seeing an improvement and getting a benefit from the machine. She is not snoring through it like she had been previously Patient Symptoms Snores: Yes Wakes gasping for breath: No Dozes off if inactive: No Dozes off with activity: No Wakes a lot through the night: Yes Witnessed episodes of apnea: Yes Is sleep restful or restorative: Yes Bedtime: 10pm Is it hard or easy to fall asleep: hard Wakes: 5:30 am Takes naps: No Feels better after napping: No Sleepwalk: No Sleeptalk: No Vivid Dreams: No Acts out dreams: No Sleep related hallucinations: No Sleep paralysis: No Cataplexy: No Restless Leg: Yes Kicking/Jerking at night: No TV on while sleeping: Yes Smoke before bed: No Caffeine within 3 hours before bed: No No issues with the mask or the machine. She is getting great benefit and it is working well for her. Past Medical History: Diagnosis Date Diabetes mellitus ([facility]) Hyperlipidemia ([facility]) Hypertension ([facility]) Past Surgical History: Procedure Laterality Date BACK SURGERY HYSTERECTOMY Family History Problem Relation Name Age of Onset COPD Mother Hypertension Father Social History Tobacco Use Smoking status: Never Smokeless tobacco: Never Substance Use Topics Alcohol use: Not on file Allergies: Bactrim [sulfamethoxazole-trimethoprim] General: No fever or chills HEENT: No nasal congestion or runny nose Pulmonary: No shortness of breath or cough Cardiovascular: No chest pain or palpitations GI: No nausea or vomiting : No dysuria or hematuria Musculoskeletal: No new aches or pains or muscle weakness Infectious: no recurrent fevers or infections Dermatologic: No rashes or skin lesions Neurologic: No new headaches or dizziness Vitals: 04/03/24 1104 BP: 132/88 Pulse: (!) 113 SpO2: 93% Body mass index is 42.98 kg/m . weight: 235 lb Neurologic exam: General: Normal body habitus, cooperative, pleasant Mental status: Awake, alert to person, place and time. Recent and remote memory are intact. Attention and concentration are normal. Fund of knowledge is appropriate for level of education. HEENT: NC/AT Cranial nerves: CN II: Visual patterson full to confrontation. No loss of vision CN III, IV, : pupils equal round and reactive to light. Extraocular movements intact. No ptosis present. CN V: Facial sensation is normal. CN VII: Full and symmetric facial movement. CN VIII: Hearing is normal CN IX and X: Palate elevates symmetrically. CN XI: Shoulder shrug is normal bilaterally. CN XII: Tongue is midline without atrophy or fasciculation. Speech: Clear and fluent no aphasia or dysarthria Pronator drift: Negative bilateral upper extremity Coordination: Intact, no signs of dysmetria Good finger to nose and rapid alternating movements Sensory: Sensation is intact to light, temperature and vibratory touch throughout four extremities. Motor: LUE 5/5 RUE 5/5 LLE 5/5 RLE 5/5 Tone: Physiologic, no tremor, bradykinesia or rigidity DTR: Bilateral Biceps 2/4 Bilateral BR 2/4 Bilateral Patellar 1/4 No spasticity Gait: Normal to casual gait Romberg's Negative Review and summary of old records: Assessment/Plan Diagnoses and all orders for this visit: YAW (obstructive sleep apnea) Hypersomnia Hypoxia Snoring Obesity due to excess calories, unspecified classification, unspecified whether serious comorbidity present 53-year-old female with a moderate to severe obstructive sleep apnea. She was originally tested back in December of 2006 and at that time had an apnea-hypopnea index of 34 with an oxygen desaturation down to 78 percent. She was started on CPAP at 9 cm of water. She then was retested June of 2014 as she needed a new machine. At that time she had a CPAP titration and her pressure was elevated to 12 cm of water. She has been doing well on that but recently her machine started to malfunction and she started to snore through the machine feeling less rested and needed a new machine. She had a home sleep study and that showed an apnea-hypopnea index of 20 which I suspect is somewhat under the amount of events. Patient was placed back on 12 cm of water and this is working very well for her. Her [place] Sleepiness scale is 3. She is compliant with the machine using 100 percent of the time greater than 4 hours with an average nightly usage of 7 hours and 31 minutes and residual AHI of 0.1. Overall she is getting great benefit her sleep is controlled and she feels good during the day. Plan Previous studies were reviewed with her HST was reviewed with her Compliance data was reviewed and she is compliant and doing well Use the machine every night while sleeping The patient was counseled on the need for aggressive diet, exercise, and weight loss. The patient was counseled on proper sleep hygiene and adequate hours of sleep. The patient was counseled on the risks of stroke, MT, and sudden with YAW, along with the need for compliance with the CPAP/BiPAP treatment. The diagnosis was all discussed with the patient. All questions were answered and they agreed with the treatment plan. Patient will call if there are any new issues or questions. Pt has been fully educated on their diagnosis, treatment options, follow up plan, and return instructions Return to clinic: 1 year documented in this encounter [facility] 12-20-2022 Evaluation note Encounter Date Diagnosis Assessment [...] verbalized understanding and agreement with treatment plan. [employer] Other 02-20-2023 Evaluation note* Encounter Date Diagnosis Assessment Notes Treatment Notes Treatment Clinical Notes Aug, Type 2 diabetes mellitus with hyperglycemia, without long-term current use of insulin (ICD-10 - E11.65) Pt will call with her glucose readings at home. Stop mounjaro and add farxiga. Also discussed potential referral to brownfield redevelopment specialist if needed. Aug, Intrinsic atopic dermatitis (ICD-10 - L20.84) Improved on dupixen. [facility] Other 01-16-2023 Evaluation note* Encounter Date Diagnosis Assessment Notes Treatment Notes Treatment Clinical Notes Jul, Dermatitis (ICD-10 - L30.9) derm referral pending [facility] Other 01-12-2023 Evaluation note* Encounter Date Diagnosis Assessment Notes Treatment Notes Treatment Clinical Notes Jul, Dermatitis (ICD-10 - L30.9) [facility] Other 06-27-2022 Evaluation note* Encounter Date Diagnosis [...] mellitus type 2 with complications, unspecified whether halfway insulin use (ICD-10 - E11.8) [facility] Other 10-28-2021 Evaluation note* Encounter Date Diagnosis [...] negative findings were considered in medical decision-making. [facility] Other 10-14-2021 Evaluation note* Encounter Date Diagnosis [...] orthopedic evaluation. A referral will be sent [employer] Other chief complaint+Reason for visit Narrative* Chief Complaint Amb Documentation referral to sleep lab Reason for Visit YAW (obstructive sle ep apnea) Sleep apnea with use of continuous positive airway pressure (CPAP) Type II diabetes mellitus Wellness examination [facility] Work Phone: Evaluation noteNo InformationNort [employer] Other Evaluation noteNo assessment information available [facility] Work Phone: Evaluation note* Diagnosis Onset Date Resolution Status YAW (obstructive sleep apnea) acute Sleep apnea with use of cont inuous positive airway pressure (CPAP) acute Type II diabetes mellitus ac boaz Wellness examination acute [facility] Work Phone: Evaluation note* Diagnosis YAW (obstructive sleep apnea) Obstructive sleep apnea (adult) (pediatric) Hypersomnia Hypersomnia, unspecified Hypoxia Hypoxemia Snoring Other dyspnea and respiratory abnormality Obesity due to excess calories, unspecified classification, unspecified whether serious comorbidity present documented in this encounter [facility] Diagnosis Onset Date Resolution Status Admit Date Essential (primary) hypertension acu te October 15, 2024 3:13pm Screening mammogram for [facility] cancer acute October 15, 2024 3:13pm Type II diabetes mellitus acute October 15, 2024 3:13pm [facility] Work Phone: History general Narrative - Reported* Type Description Date Medical History CLOSED FRACRURE RIGHT HUMERUS Medical History MIGRAINES Medical History LOW BACK PAIN Medical History INSOMNIA Medical History HTN Medical History GERD Medical History OBESITY Surgical History back surgery X2 Surgical History PARTIAL HYSTERECTOMY 2009 Surgical History D & C HYSTEROSCOPY 2009 Surgical History hysterectomy Surgical History POSTERIOR LUMBAR INTERBODY FUSI ON 2008 Surgical History LUMBAR SURGERY 2014 Surgical History XLIF-Doctor Hutton Hospitalization History See Above [facility] [employer] Other Hospital Discharge instructionsAmbulatory Orders* Referral to Pain Management Location: None Selected * Referral to Speech/PT/OT (PT/OT/SP) Location: None Selected [facility] Work Phone: Reason for Referral Reason 05/27/21 @ 3:30pm Evaluate and Treat Diagnosis 1 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) Referral Organization [facility] Ne urosurgery Referring Provider First Name John Referring Provider Last Name Anni Referring Provider Specialty Neurologica l Surgery Referred Organization [facility] Referred Provider Luke Johnson Referred Address [address],[place],[address] Referred Provider Specialty Pain Medicin e Referral Priority Routine Referral Appointment Date 2021-05-27 General Notes Fore, Sailaja M 021 10:19:23 AM >Received today and sent [id number], Sailaja M 05/17/2021 07:18:52 AM >Patient has been scheduled Reason *FU 05/25 Evaluate and Treat Diagnosis 1 Trochanteric bursiti s of left hip (M70.62) Referral Organization [facility] urosurgery Referring Provider First Name John Referring Provider Last Name Anni Referring Provider Specialty Neurologica l Surgery Referred Organization [facility] Referred Provider Feroz Schofield Jr Referred Address ,[place], [place],[address] Referred Provider Specialty Orthopedic S urgery Referral Priority Routine General Notes Sailaja Brown 021 10:22:16 AM >Received today and waiting for office notes to be locked before sendingSailaja Brown 05/18/2021 01:54:26 PM >Referral was fax Reason 09/06/22 Recurrent rash - last OV note in Jun scanned into [facility]. Thanks Diagnosis 1 Dermatitis (L30.9) Referral Organization [facility] Medical C jake Referring Provider First Name Denise Referring Provider Last Name Anni Referring Provider Specialty Family Medi cine Referred Organization [facility] Referred Address [address],[place], [place],[address] Referred Provider Specialty Dermatology Referral Priority Routine [...] closing referal at this time Family History Relationship Condition Age at Onset Recorded Date/T [...] Unknown brother Diabetes mellitus Unknown Advance Directives Advance Directive Response Recorded Date/ Time Advance Directives No August 07, 2017 1:29pm Advance Directive Response Recorded Date/ Time Advance Directives No August 07, 2017 2:29pm Summary Purpose Chief Complaint and Reason for Visit Chief Complaint m54.50 Chief Complaint m54.50 two broken screw and lower back pain Chief Complaint Admit Date BP Issues October 15, 2024 3:1 3pm Reason for Visit Admit Date Essential (primary) hypertension September 282024 3:13pm Screening mammogram for breast cancer [facility] 2024 3:13pm Type II diabetes mellitus October 15 3:13pm Additional Source Comments REASON FOR VISIT (unrecogniz ed section and content) Reason Comments Sleep Apnea Care Teams (unrecognized sec tion and content) Team Status: Active Member Role Status Dates Denise Hutton MD Primary Care Provider Active Team Status: Inactive Member Role Status Dates Denise Htuton MD Primary Care Provide r, Attending Provider Active Start: February 22, 2024 End: February 22, 2024 Team Status: Inactive Member Role Status Dates Denise Hutton MD Primary Care Provider Active IASAC Lee Attending Provider Active Team Status: Active [...] February 27, 2024 End: February 27, 2024 Solar Mechanical Engineer Relationship Specialty Start Date End Date Denise Hutton MD [address] [place] [phone] PCP - General Family Medicine 01/03/23 Solar Mechanical Engineer Relationship Specialty Start Date End Date Denise Hutton MD [address] [facility] [place] [address] PCP - General Family Medicine 01/03/23 Team Status: Inactive Member Role Status Dates Denise Hutton MD Primary Care Provide r, Attending Provider Active Start: October 15, 2024 End: October 15, 2024 Goals (unrecognized section and content) Goals may be documented in a n alternate section INFORMATION SOURCE (unrecogn ized section and content) DATE CREATED AUTHOR 09/17/2022 [facility] DATE CREATED AUTHOR AUTHOR'S ORGANIZ ATION 12/06/2022 [facility] pital DATE CREATED AUTHOR AUTHOR'S ORGANIZ ATION 04/04/2024 [facility] EPIC DATE CREATED AUTHOR AUTHOR'S ORGANIZ ATION 04/14/2024 [facility] FOR RECORDS PERTAINING TO PATIENTS WHO [...] BE BASED ON THE PRIMARY CLINICAL RECORDS. [facility] [employer] [facility]. provides no warranty or guarantee of the accuracy or completeness of information in this document.
[2024-10-28 07:12] LABS: Basophils Percent Auto 0.6 % (0.2-2.0); Eosinophils Absolute Auto 0.2 10^3/uL (0.0-0.7); Eosinophils Percent Auto 3.5 % (0.9-7.0); Hematocrit 40.5 % (36.0-48.0); Hemoglobin 14.4 g/dL (12.0-16.0); Immature Granulocytes Abs Auto 0.01 10^3/uL (0.00-0.03); Immature Granulocytes Pct Auto 0.2 % (0.0-0.5); Lymphocytes Absolute Auto 2.1 10^3/uL (1.2-3.8); Lymphocytes Percent Auto 33.1 % (20.5-60.0); Mean Corpuscular HGB Conc 35.6 g/dL (29.9-35.2); Mean Corpuscular Hemoglobin 33.4 pg (26.7-34.0); Mean Platelet Volume 9.4 fL (9.5-13.5); Monocytes Absolute Auto 0.6 10^3/uL (0.3-0.8); Neutrophils Absolute Auto 3.3 10^3/uL (1.4-6.5); Neutrophils Percent Auto 53.6 % (43.0-75.0); Platelet Count 268 10^3/uL (150-450); Red Blood Count 4.31 10^6/uL (4.20-5.40); Red Cell Distribution Width 12.7 % (11.0-15.0); White Blood Count 6.2 10^3/uL (4.0-11.0)
--- NOTE | 2024-10-28 07:22 | MM_ITS ---
Patient Name: SHIMON MENDOZA MR#: [id number] : 1970 Exam Date: 10/28/2024 Ordering Doctor: DR Denise Baker M.D. RADIOLOGY REPORT PROCEDURE: MM TOMOSYNTHESIS SCREENING BI COMPARISON: MG MAMM SCREEN 3D DYLAN CAD, 05/18/2021. MG MAMM SCREEN DYLAN W CAD, 07/30/2019. MG MAMM DYLAN SCRN W CAD DIG, 05/28/2015. MG MAMM DYLAN SCRN W CAD DIG, 09/17/2013. INDICATIONS: Screening for malignant neoplasm Calculator Name NCI Breast Cancer Risk Assessment Tool 5 Year Breast Cancer Risk 1.20% Lifetime Breast Cancer Risk 8.50% Personal Breast Cancer No Personal Ovarian Cancer No Treatments None Family Cancers None LOCATION: [facility] BREAST COMPOSITION: The breasts are almost entirely fatty. FINDINGS: DIAGNOSTIC CATEGORY 1--NEGATIVE. RIGHT BREAST: No significant suspicious finding. LEFT BREAST: No significant suspicious finding. RECOMMENDATIONS: ROUTINE MAMMOGRAM AND CLINICAL EVALUATION IN 12 MONTHS. PLEASE NOTE: A NORMAL MAMMOGRAM DOES NOT EXCLUDE THE POSSIBILITY OF BREAST CANCER. A CLINICALLY SUSPICIOUS PALPABLE LUMP SHOULD BE BIOPSIED. Dictated by: Elder Marmolejo DO on 10/28/2024 at 16:14 Approved by: Elder Marmolejo DO on 10/28/2024 at 16:16
[2024-10-28 07:27] LABS: Creatinine Urine Random 44.09 mg/dL (20.00-300.00)
[2024-10-28 07:33] LABS: Microalbumin Urine Random <1.3 mg/dL (<=30.0)
[2024-10-28 08:08] LABS: Estimated Average Glucose 223 mg/dL; Glycohemoglobin A1C 9.4 % (4.5-6.2)
[2024-10-28 08:10] LABS: Alanine Aminotransferase 51 U/L (14-59); Albumin Level 3.7 g/dL (3.4-5.0); Alkaline Phosphatase 69 U/L (46-116); Anion Gap 18.4; Aspartate Amino Transferase 36 U/L (15-37); BUN Creatinine Ratio 17.5; Bilirubin Total 0.3 mg/dL (0.2-1.0); Calcium 8.7 mg/dL (8.5-10.1); Carbon Dioxide 24.1 mmol/L (21.0-32.0); Chloride 99 mmol/L (98-107); Chol HDL Ratio 2.7; Cholesterol 194 mg/dL (<=200); Estimated GFR (African America >60 (>=60 mL/min/1.73m^2); Estimated GFR (Non-African Ame >60 (>=60 mL/min/1.73m^2); Globulin 3.6 g/dL; Glucose 188 mg/dL (74-106); HDL Cholesterol 72 mg/dL (40-60); Potassium 3.5 mmol/L (3.5-5.1); Sodium 138 mmol/L (136-145); Total Protein 7.3 g/dL (6.4-8.2); Triglycerides 212 mg/dL (<=150); VLDL CHOLESTEROL 42.4 mg/dL
== END 2024-10-28 06:49 | disposition home or self-care (01) ==
LOC: LAB 06:48
PROVIDERS: PCP Family Medicine; Visit Provider Family Medicine
DX: Z12.31 Encounter for screening mammogram for malignant neoplasm of breast (principal); Z00.00 Encounter for general adult medical examination without abnormal findings; E11.9 Type 2 diabetes mellitus without complications; I10 Essential (primary) hypertension
CPT/HCPCS: 36415; 77063; 77067; 80053; 80061; 82043; 82570; 83036; 84443; 85025